=== PATIENT | female | born 1970 | race Caucasian/White ===

== ENCOUNTER 2018-02-14 06:56 | Day surgery (SDC) | payer BC, SELFPAY ==
[2017-11-05 15:09] VITALS: BMI 27.0
[2018-02-07 10:32] VITALS: BP 114/72; PULSE 82; RESP 18; TEMP 36.9; O2SAT 95; BMI 28.1
[2018-02-07 11:46] LABS: Hemoglobin 13.8 g/dl (12.0-15.0); Mean Corp Hgb Conc 32.9 g/gl (32-36); Mean Corpuscular Hgb 30.9 pg (27.0-32.0); Mean Corpuscular Volume 94.2 fL (81-99); Mean Platelet Vol. 11.3 fl (6.2-12.0); Platelet Count 174 K/mm3 (150-450); RBC Distribution Width CV 12.4 % (11.6-14.6); RBC Distribution Width SD 42.7 fl (35.1-43.9); Red Blood Count 4.46 M/mm3 (4.2-5.4); White Blood Count 4.1 K/mm3 (4.4-11.0)
[2018-02-07 11:47] LABS: Scan Indicated on CBC? Y/N NO
[2018-02-07 11:52] LABS: Prothrombin Time (Protime)PT. 13.6 SECONDS (11.7-14.9)
[2018-02-07 11:53] LABS: Partial Thromboplast Time 39.4 Seconds (24.1-36.2)
[2018-02-07 12:21] LABS: AST(SGOT) 20 U/L (15-37); Alanine Aminotransfer ALT/SGPT 23 U/L (13-56); Albumin, Serum 3.5 g/dL (3.2-5.0); Alkaline Phosphatase 44 U/L (45-117); Globulin 3.2 g/dL (2.2-4.2); Protein, Total 6.7 g/dL (6.4-8.2); Thyroid Stim Hormone (TSH) 0.94 uIU/mL (0.358-3.74)
[2018-02-14] VITALS (13 sets, daily range): BP systolic 106–150; BP diastolic 64–91; PULSE 59–99; RESP 12–18; TEMP 36.1–37.7; O2SAT 95–100; BMI 28.1
--- NOTE | 2018-02-14 06:38 | PCM.HP.STD ---
Problem List (1) Abnormal uterine bleeding Status: Acute Comment: plan [facility] BS History of Present Illness Date of Admission: 02/14/18 IRREGULAR BLEEDING: Details: SILVINO POZO is a 47 year old who presents for persistent AUB. she has had heavy menses and they are irregular- long lasting. she has a history of a normal biopsy of the endometrium. she has discussed ablation and mirena iud and doesn't want either of those. she has some fibroids also. no c sections. Female Reproductive History Last Menstral Period: 10/28/17 Cycle Length: 21-35 Bleeding Duration: 8 associated symptoms: dysmenorrhea Questions: Metorrhagia: No, Sexually active: Yes, Dyspareunia: Yes, PCB: No Menopausal Symptoms: No hot flashes, No night sweats, No weight change, No mood changes, No difficulty concentrating, No sleep problems, No change in libido Pregancy History 3 Elective abortions Hx Para 2 Spontaneous abortions Hx # Term Pregnancies Ectopic pregnancies Hx # Pregnancies Multiple births # of living children Past Pregnancies Del. Date Name GA/Weeks Outcome Route Bth Weight Gen Labor Lgth Anesthesia Del [facility] Provider FOB Unknown 1994 Pierre live - full term Unknown 1999 Gerry live - full term Past Medical History Medical History: Medical History (Last Updated 11/05/17 @ 15:15 by Pavithra Valdivia) History of back pain Z87.39 History of thyroid cancer Z85.850 Thyroid disorder E07.9 Allergies amoxicillin Allergy (Mild, Verified 02/07/18 10:14) Other naproxen Allergy (Mild, Verified 02/07/18 10:14) Other penicillin G Allergy (Mild, Verified 02/07/18 10:14) Other sulfamethoxazole [From Bactrim] Allergy (Mild, Verified 02/07/18 10:14) Unknown trimethoprim [From Bactrim] Allergy (Mild, Verified 02/07/18 10:14) Unknown donnat Allergy (Mild, Uncoded 02/07/18 10:14) Other Home Medications: Ambulatory Orders Medication Instructions Recorded baclofen 10 mg tablet 10 mg PO TID 11/05/17 biotin 10,000 mcg capsule 10,000 mcg PO DAILY 11/05/17 cholecalciferol (vitamin D3) 5,000 5,000 unit PO DAILY 09/10/18 unit capsule cyclobenzaprine 10 mg tablet 10 mg PO TID 11/05/17 docusate sodium 50 mg capsule 50 mg PO DAILY 11/05/17 lactobacillus combination no.8 3 3,000 mmu cells PO DAILY 11/05/17 billion cell capsule levothyroxine 175 mcg tablet 175 mcg PO DAILY 11/05/17 multivitamin,qs-judp-emshnyxb 1 tab PO DAILY 11/05/17 tablet tramadol 50 mg tablet 50 mg PO Q6H 11/05/17 tramadol ER 300 mg tablet,extended 300 mg PO DAILY 11/05/17 release 24 hr Surgical History: Surgical History (Last Updated 11/05/17 @ 15:15 by Pavithra Valdivia) H/O dilation and curettage Z98.890 History of back surgery Z98.890 History of bunionectomy Z98.890 History of shoulder surgery Z98.890 History of thyroidectomy Z98.890 History of tonsillectomy Z90.89 Smoking Status: Current every day smoker Review of Systems Constitutional: Denies: Fever, Malaise Eyes: Denies: Blurred vision, Vision Change HEENT: Denies: Head Aches, Visual Changes Cardiovascular: Denies: Chest Pain, Palpitations Respiratory: Denies: Cough, Shortness of Breath, Wheezing Gastrointestinal: Denies: Abdominal Pain, Diarrhea, Nausea, Vomiting Genitourinary: Denies: Dysuria, Hematuria Musculoskeletal: Denies: Joint Pain, Muscle pain Skin: Denies: Lesions, Rash Neurological: Denies: Blurred vision, Focal weakness, Headaches Psychiatric: Denies: Anxiety, Depression Endocrine: Denies: Heat/ Cold Intolerance Hematologic/ Lymphatic: Denies: Easy Bruising, Easy Bleeding VTE Information - Inpt Only VTE Present on Admission: No - Physical Exam General: Alert, Oriented x3 HEENT: EOMI Neck: Trachea Midline, Thyroid Normal Size and Texture Lungs: Clear to auscultation, Normal air movement Cardiovascular: Regular rate Abdomen: Soft, Non Tender, Non-Distended Extremities: No clubbing, No cyanosis, No edema Skin: No rashes Musculoskeletal: No Tenderness to Palpation of Joints or Extremities Neurological: Neuro grossly intact Psych/Mental Status: Normal Affect Vital Signs Temp Pulse Resp BP Pulse Ox 98.5 F 82 18 114/72 95 02/07/18 10:32 12/13/18 10:32 02/07/18 10:32 02/07/18 10:32 02/07/18 10:32 Oxygen Delivery Method Room Air Weight: 169 lb 1.513 oz Body Mass Index (BMI) 28.1 Assessment/Plan All Active Problems (Last Updated 11/05/17 @ 15:15 by Pavithra Valdivia) Abnormal uterine bleeding (Acute) 47 yo with AUB declined ablation and failed medical therapies discussed surgical risks including risks of anesthesia, infection, bleeding, injury to bowel, bladder or blood vessels, and patient wishes to proceed with surgery. UPDATE- I have seen the patient and performed any clinically relevant updates to the history and physical exam. Brandi Vaca MD
[2018-02-14 07:30] LABS: Internal QC Validated? YES +Cl - CLEAR BKGD; Pregnancy, Urine Negative Negative
[2018-02-14] MEDS: Phenazopyridine 95 MG Tablet 190 MG PO (07:44)
--- NOTE | 2018-02-14 08:45 | HYST_PTH ---
PATIENT: SILVINO POZO LOC: [facility] [place] U#:[id number] AGE/SX: 47/F ROOM: RE02/14/[address]: Dr. Brandi Vaca MD : 1970 BED: DIS: 02/15/2018 SPEC #: [id number] RECD: 02/14/18 11:38 STATUS: SULAIMAN CHARY #: [id number] EDU: 02/14/18 08:[address]: Brandi Vaca DEPT: SURGICAL PATHOLOGY RECD BY: Dereje Horn ENTERED: 02/14/18 12:57 SP TYPE: HYSTERECT OTHR DR: Dr. Patricio Kaminski DO Tissues: Uterus, NOS Procedures: Surgery Specimen Level V HEADER OPERATION: Vaginal hysterectomy, bilateral salpingectomy PRE-OP DIAGNOSIS: Abnormal uterine bleeding TISSUE SUBMITTED: Uterus, cervix, bilateral fallopian tubes MICROSCOPIC DIAGNOSIS Uterus, cervix, bilateral fallopian tubes, vaginal hysterectomy and bilateral salpingectomy: Cervix - chronic inflammation and squamous metaplasia. Endometrium - secretory endometrium. Endometrial polyp - benign endometrial polyp with secretory endometrium. Myometrium - intramural leiomyomas. - Focal adenomyosis. Bilateral fallopian tubes - no pathologic diagnosis. Detached cyst - consistent corpus luteum cyst. SJ:art 02/15/18 MICROSCOPIC DESCRIPTION Slides are reviewed. GROSS DESCRIPTION Received in fixative is one container labeled with the patient's name and designated uterus. The specimen consists of a uterus with attached cervix measuring 11 x 6 x 5.5 cm and weighing 152 gm. The ectocervix is unremarkable. The cervical os is oval in contour. The endocervical canal measures 3.3 cm in length and is grossly unremarkable. The triangular endometrial cavity measures 4.5 x 3.6 cm. The velvety, light mckay endometrium measures up to 0.2 cm. The endometrial surface contains a flat reddish-mckay endometrial polyp measuring 1.2 cm in greatest dimension. The myometrium beneath the polyp is not indurated. The myometrium measures 2.4 cm in average thickness and contains multiple rubbery nodules ranging in size from 0.5 to 2 cm in greatest dimension. The nodules on cut surface reveal a whorled appearance without areas of cyst formation, necrosis or hemorrhage. Present free in the container are two grossly unremarkable fallopian tubes with average lengths of 4 cm and average diameters of 0.5 cm. Also present free in the container is what appears to be a collapsed light mckay cyst measuring 1 cm in greatest dimension. Timber Spotter sections are submitted in 11 cassettes as follows: 1 - anterior cervix, 2 - posterior cervix, 3 - endometrial polyp, 4 & 5 - anterior myometrial wall, 6 & 7 - posterior myometrial wall, 8 - myometrial nodules, 9 - one fallopian tube, 10 - the other fallopian tube, 11 - cystic structure free in container. / AM:art 02/14/18 TC:1 CPT: 75460
[2018-02-14] MEDS: Vasopressin 20 UNITS/ML Vial (09:59)
--- NOTE | 2018-02-14 10:25 | OP.PCM_ITS ---
Problem List (1) Abnormal uterine bleeding Status: Acute Comment: plan [facility] BS Report of Operation Date of Procedure: 02/14/18 Pre-Operative Diagnosis: sterilization Post-Operative Diagnosis: same Surgery/Procedure Performed:: tv bs Description of Surgical Findings:: normal uterus tubes left cystic ovary grinder and honer operator automatic: Molly Medeiros Type of Anesthesia:: General Specimen's removed: uterus tubes Drains: peguero Estimated Blood Loss (mL): 150 Fluids Replaced: crystalloid Description of Procedure: Patient was taken to the operating room and was placed under general anesthesia was prepped and draped in normal sterile fashion in the dorsal lithotomy position. Preoperative antibiotics and SCDs and Peguero catheter was placed inside the bladder. Weighted speculum was placed in the vagina and the anterior and posterior lip of the cervix was grasped with 2 Terrie clamps and circumferentially injected with dilute vasopressin. A circumferential incision was made with a scalpel and the posterior cul-de-sac was entered into sharply and a longneck speculum was placed. The anterior cul-de-sac was also dissected down and entered into sharply and the uterosacral ligaments were clamped cut and suture ligated bilaterally followed by the cardinal ligaments which were Clamped cut and suture ligated bilaterally with 0 Monocryl. The uterus serially descended and progressive bites were taken bilaterally up to the level of the utero-ovarian ligament bilaterally which was clamped transected and double ligated with 0 Monocryl suture and 0 Vicryl free tie. Bilateral fallopian tubes and ovaries were well visualized and noted be within normal limits and the bilateral fallopian tubes were transected across the base with a Maggie clamp and removed and sutured with 0 Vicryl suture. Excellent hemostasis was noted. Posterior peritoneum was reapproximated with 2-0 Vicryl and a modified Villarreal stitch was placed through the posterior vaginal cuff and bilateral uterosacral ligaments across the posterior cul-de-sac skimming along to provide apical support to the vagina. The vagina was closed with [id number] 0 Vicryl pop offs including the posterior and anterior peritoneum in the reapproximation. Excellent hemostasis was noted. All instruments removed from the vagina clear urine was noted at the end of the procedure and patient was awoken and taken recovery in stable condition. Grafts/Implants Used: none - Complications none - Admit VTE Documentation VTE Present on Admission: No VTE Mechan Device Prophylaxis: SCD's
--- NOTE | 2018-02-14 10:25 | DCINST_ITS ---
Discharge Diet: No Restrictions Discharge Activity: Return to Normal Activity, May Not Drive, May Shower May resume sexual activity in: 6-8 weeks Call your doctor if your incision/area has: Continuous Slow Oozing, Sudden Increased Bleeding, Increased Pain/ Swelling, Increased Redness, Foul Smelling Discharge Call your doctor if you observe: Fever of 101 or Higher, Inability to urinate, Inability to have a bowel movement, Using more than one pad per hour Allergies/Adverse Reactions: Allergies naproxen Allergy (Mild, Verified 02/07/18 10:14) Other penicillin G Allergy (Mild, Verified 02/14/18 07:38) Unknown sulfamethoxazole [From Bactrim] Allergy (Mild, Verified 02/14/18 07:38) Rash trimethoprim [From Bactrim] Allergy (Mild, Verified 02/14/18 07:38) Rash amoxicillin Adverse Reaction (Mild, Verified 02/14/18 07:38) Nausea/Vom/Diarrhea atropine [From ] Adverse Reaction (Verified 02/14/18 07:38) Nausea/Vom/Diarrhea hyoscyamine [From ] Adverse Reaction (Verified 02/14/18 07:38) Nausea/Vom/Diarrhea phenobarbital [From ] Adverse Reaction (Verified 02/14/18 07:38) Nausea/Vom/Diarrhea scopolamine [From ] Adverse Reaction (Verified 02/14/18 07:38) Nausea/Vom/Diarrhea Medications to take at Discharge baclofen 10 mg tablet 10 mg PO TID 11/05/17 biotin 10,000 mcg capsule 10,000 mcg PO DAILY 11/05/17 cholecalciferol (vitamin D3) 5,000 unit capsule 5,000 unit PO DAILY 11/05/17 cyclobenzaprine 10 mg tablet 10 mg PO TID 11/05/17 docusate sodium 50 mg capsule 50 mg PO DAILY 11/05/17 lactobacillus combination no.8 3 billion cell capsule 3,000 mmu cells PO DAILY 11/05/17 levothyroxine 175 mcg tablet 175 mcg PO DAILY 11/05/17 multivitamin,eq-gwdh-usivxwcy tablet 1 tab PO DAILY 11/05/17 tramadol 50 mg tablet 50 mg PO Q6H 11/05/17 tramadol ER 300 mg tablet,extended release 24 hr 300 mg PO DAILY 11/05/17 Oxycodone HCl/Acetaminophen [Percocet 5-325] 1 - 2 tablet PO Q4H PRN PRN 7 Days #28 tablet 02/14/18 The following prescriptions were given: Oxycodone HCl/Acetaminophen [Percocet 5-325] 1 - 2 tablet PO Q4H PRN PRN 7 Days #28 tablet PRN Reason: Moderate-Severe pain Orders to be completed after discharge: Type & Screen Time Frame: 02/14/18, Location: None Selected Partial Thromboplast Time Time Frame: 02/07/18, Location: Laboratory CBC W/Diff, Automated Time Frame: 02/07/18, Location: Laboratory Liver Profile Time Frame: 02/07/18, Location: Laboratory Prothrombin Time w/INR Time Frame: 02/07/18, Location: Laboratory Thyroid Stim Hormone (TSH) Time Frame: 02/07/18, Location: Laboratory Primary Care Physician: Patricio Kaminski DO [Primary Care Provider] - Test Results: Test results from this visit will be discussed in further detail at your follow- up appointment, if applicable. Please Follow Up With: Brandi Vaca MD - [phone]
[2018-02-14] MEDS: HYDROmorphone 1 MG/ML Syringe IV ×3 (12:33→20:20)
[2018-02-14] MEDS: Lactated Ringers 1,000 ML 125 ML IV (13:52)
[2018-02-14] MEDS: Acetaminophen 500 MG Tablet 1000 MG PO (13:55)
[2018-02-14] MEDS: oxyCODONE 5 MG Tablet PO ×2 (13:55→18:26)
[2018-02-14] MEDS: Enoxaparin 40 MG/0.4 ML Syringe SC (15:42)
[2018-02-14] MEDS: Ondansetron 4 MG/2 ML Vial IV (18:28)
[2018-02-14] MEDS: traMADol 50 MG Tablet 100 MG PO (22:32)
[2018-02-15] MEDS: HYDROmorphone 1 MG/ML Syringe IV (03:21)
[2018-02-15] MEDS: 0.9% NaCl Peripheral Flush Adult/Peds IV (03:21)
[2018-02-15 03:36] VITALS: BP 102/48; PULSE 91; RESP 16; TEMP 36.9; O2SAT 94
[2018-02-15] MEDS: oxyCODONE 5 MG Tablet PO ×2 (04:28→08:37)
[2018-02-15] MEDS: Ondansetron 4 MG/2 ML Vial IV (04:30)
[2018-02-15 06:01] LABS: Hematocrit 35.7 % (37-47); Mean Corp Hgb Conc 33.6 g/gl (32-36); Mean Corpuscular Volume 95.2 fL (81-99); Mean Platelet Vol. 11.6 fl (6.2-12.0); Platelet Count 175 K/mm3 (150-450); RBC Distribution Width CV 12.4 % (11.6-14.6); RBC Distribution Width SD 41.9 fl (35.1-43.9); Red Blood Count 3.75 M/mm3 (4.2-5.4); White Blood Count 7.7 K/mm3 (4.4-11.0)
[2018-02-15 06:09] LABS: Scan Indicated on CBC? Y/N NO
[2018-02-15] MEDS: Levothyroxine 175 MCG Tablet PO (06:11)
[2018-02-15] MEDS: traMADol 50 MG Tablet 100 MG PO (06:11)
[2018-02-15 06:16] LABS: Creatinine, Serum 0.59 mg/dL (0.55-1.02); EST Glomerular Filtration Rate 117 mL/min (>60); Est Glom Filt Rate - Afr Amer 142 mL/min (>60); Estimated Creatinine Clearance 108.35 ml/min
[2018-02-15 07:52] VITALS: O2SAT 97
[2018-02-15 07:55] VITALS: BP 120/74; PULSE 74; RESP 16; TEMP 36.9; O2SAT 98
[2018-02-15] MEDS: Baclofen 10 MG Tablet PO (08:06)
[2018-02-15] MEDS: Acetaminophen 500 MG Tablet 1000 MG PO (08:37)
[2018-02-15] MEDS: Enoxaparin 40 MG/0.4 ML Syringe SC (10:08)
[2018-02-15] MEDS: Docusate Sodium 100 MG/10 ML UDC 50 MG PO (10:08)
== END 2018-02-15 12:05 | disposition home or self-care (01) ==
LOC: SDC 06:56 → AC 06:57 → ACINP 11:21 → MS3 12:04
PROVIDERS: Anesthesiology; Family Provider Student in an Organized Health Care Education/Training Program; PCP Student in an Organized Health Care Education/Training Program; Referring Provider Obstetrics & Gynecology; Visit Provider Obstetrics & Gynecology
PROC: (CPT 58260; principal; 2018-02-14 08:25)
DX: N84.0 Polyp of corpus uteri (principal); N92.1 Excessive and frequent menstruation with irregular cycle; Z85.850 Personal history of malignant neoplasm of thyroid; E07.9 Disorder of thyroid, unspecified; Z79.899 Other long term (current) drug therapy; F17.200 Nicotine dependence, unspecified, uncomplicated; N83.12 Corpus luteum cyst of left ovary; N80.0 Endometriosis of uterus; N87.9 Dysplasia of cervix uteri, unspecified
CPT/HCPCS: 58262; 36415; 80076; 81025; 82565; 84443; 85027; 85610; 85730; 86850; 86900; 88307; J7120; A4216; J2405

== ENCOUNTER → 2019-02-14 09:37 | Outpatient (CLI) | payer BC, SELFPAY ==
[2019-02-14 09:37] VITALS: BMI 26.2
[2019-02-14 10:36] LABS: T4 Free Direct 0.91 ng/dL (0.76-1.46); Thyroid Stim Hormone (TSH) 9.83 uIU/mL (0.358-3.74)
[2019-02-24 13:00] LABS: Anti-Thyroglobulin AB 8.7 IU/mL (0.0-0.9); Thyroglobulin RIA < 2.0 ng/mL (.)
== END ==
PROVIDERS: Family Provider Student in an Organized Health Care Education/Training Program; PCP Student in an Organized Health Care Education/Training Program; Visit Provider Internal Medicine Endocrinology, Diabetes & Metabolism
DX: C73 Malignant neoplasm of thyroid gland (principal)
CPT/HCPCS: 36415; 84432; 84439; 84443; 86800

== ENCOUNTER → 2019-04-07 11:27 | Outpatient (CLI) | payer BC, SELFPAY ==
[2019-02-14 09:37] VITALS: BMI 26.2
[2019-04-07 12:17] LABS: T4 Free Direct 1.01 ng/dL (0.76-1.46); Thyroid Stim Hormone (TSH) 1.77 uIU/mL (0.358-3.74)
== END ==
PROVIDERS: PCP Student in an Organized Health Care Education/Training Program; Referring Provider Internal Medicine Endocrinology, Diabetes & Metabolism; Visit Provider Internal Medicine Endocrinology, Diabetes & Metabolism
DX: E89.0 Postprocedural hypothyroidism (principal)
CPT/HCPCS: 36415; 84439; 84443

== ENCOUNTER → 2019-08-11 11:13 | Outpatient (CLI) | payer BC, SELFPAY ==
[2019-02-14 09:37] VITALS: BMI 26.2
[2019-08-11 11:55] LABS: T4 Free Direct 1.34 ng/dL (0.76-1.46); Thyroid Stim Hormone (TSH) 0.11 uIU/mL (0.358-3.74)
== END ==
PROVIDERS: PCP Student in an Organized Health Care Education/Training Program; Referring Provider Internal Medicine Endocrinology, Diabetes & Metabolism; Visit Provider Internal Medicine Endocrinology, Diabetes & Metabolism
DX: E03.9 Hypothyroidism, unspecified (principal)
CPT/HCPCS: 36415; 84439; 84443

== ENCOUNTER → 2019-11-12 10:58 | Outpatient (CLI) | payer BC, SELFPAY ==
[2019-02-14 09:37] VITALS: BMI 26.2
[2019-11-12 12:32] LABS: Free T3 2.5 pg/mL (2.18-3.98); T4 Free Direct 1.26 ng/dL (0.76-1.46)
[2019-11-12 12:35] LABS: Thyroid Stim Hormone (TSH) 0.02 uIU/mL (0.358-3.74)
== END ==
PROVIDERS: PCP Student in an Organized Health Care Education/Training Program; Referring Provider Internal Medicine Endocrinology, Diabetes & Metabolism; Visit Provider Internal Medicine Endocrinology, Diabetes & Metabolism
DX: E03.9 Hypothyroidism, unspecified (principal)
CPT/HCPCS: 36415; 84439; 84443; 84481

== ENCOUNTER → 2019-12-09 10:40 | Outpatient (CLI) | payer BC, SELFPAY ==
[2019-02-14 09:37] VITALS: BMI 26.2
[2019-12-09 11:22] LABS: Thyroid Stim Hormone (TSH) 0.01 uIU/mL (0.358-3.74)
== END ==
PROVIDERS: PCP Student in an Organized Health Care Education/Training Program; Referring Provider Internal Medicine Endocrinology, Diabetes & Metabolism; Visit Provider Internal Medicine Endocrinology, Diabetes & Metabolism
CPT/HCPCS: 36415; 84443

== ENCOUNTER → 2020-02-03 14:50 | Outpatient (CLI) | payer BC, SELFPAY ==
[2019-02-14 09:37] VITALS: BMI 26.2
[2020-02-03 16:19] LABS: T4 Free Direct 1.41 ng/dL (0.76-1.46); Thyroid Stim Hormone (TSH) < 0.01 uIU/mL (0.358-3.74)
== END ==
PROVIDERS: PCP Student in an Organized Health Care Education/Training Program; Referring Provider Internal Medicine Endocrinology, Diabetes & Metabolism; Visit Provider Internal Medicine Endocrinology, Diabetes & Metabolism
DX: E89.0 Postprocedural hypothyroidism (principal)
CPT/HCPCS: 36415; 84439; 84443

== ENCOUNTER → 2020-02-17 13:01 | Outpatient (CLI) | payer BC, SELFPAY ==
[2019-02-14 09:37] VITALS: BMI 26.2
--- NOTE | 2020-02-17 13:04 | CT_ITS ---
STUDY: CT MAXILLOFACIAL SINUSES REASON FOR EXAM: Female, 49 years old. SINUSITIS-BILAT, HX-THYROID CA WITH REMOVAL AND RAD TX RADIATION DOSAGE (If Supplied By Facility): CTDIvol = ( 33.06 ) mGy, DLP = ( 788.40 ) mGycm TECHNIQUE: The patient was scanned in a multi detector CT scanner. High resolution axial imaging was performed without the administration of intravenous contrast material. Sagittal and coronal images were reconstructed. Individualized dose optimization techniques were used for this CT. COMPARISON: None. FINDINGS: FRONTAL SINUSES: Normal aeration, without mucosal inflammatory disease. ETHMOIDAL SINUSES: Normal aeration, without mucosal inflammatory disease. MAXILLARY SINUSES: Normal aeration, without mucosal inflammatory disease. SPHENOIDAL SINUSES: Normal aeration, without mucosal inflammatory disease. There is patency of the bilateral maxillary infundibuli with normal uncinate processes, ethmoid bullae, and hiatus semilunaris. Normal bilateral middle turbinates. Normal bilateral inferior turbinates. There is a right sided nasal septal deviation with a right sided nasal septal spur. There is patency of the bilateral nasal airways. CT/Sinus/Facial Bone IMPRESSION: The sinuses are clear. Nasal septal deviation. Electronically Signed: Jony Rubalcava MD at 13:12 EST Tel , Service support ,
== END ==
LOC: CT 13:03
PROVIDERS: PCP Student in an Organized Health Care Education/Training Program; Referring Provider Otolaryngology Otolaryngology/Facial Plastic Surgery; Visit Provider Otolaryngology Otolaryngology/Facial Plastic Surgery
DX: J32.9 Chronic sinusitis, unspecified (principal)
CPT/HCPCS: 70486

== ENCOUNTER → 2020-03-10 10:07 | Outpatient (CLI) | payer BC, SELFPAY ==
[2019-02-14 09:37] VITALS: BMI 26.2
--- NOTE | 2020-03-10 10:14 | NM_ITS ---
CLINICAL: 49-year-old female with reported history of postprandial abdominal pain and nausea. RADIONUCLIDE HEPATOBILIARY SCINTIGRAPHY COMPARISON: None available FINDINGS: Following the intravenous administration of 5.6 mCi of 99m Tc Mebrofenin, hepatobiliary images reveal: 1. Relatively prompt and homogeneous radiopharmaceutical concentration is noted by a normal sized liver. No parenchymal defects are identified. 2. Gallbladder activity is identified at 10 minutes post radiopharmaceutical administration. 3. Small intestinal tract is observed at 30 minutes following tracer injection. 4. Washout of the radiopharmaceutical by the hepatic parenchyma appears qualitatively normal. Cholecystokinin (0.02 ug/kg) was administered intravenously over a 30-minute period. The post CCK gallbladder ejection fraction calculated at 20 minutes following Cholecystokinin administration was noted to be 63.0 % (normal greater than 35%). During 30 minutes of post CCK imaging, there is no scintigraphic evidence of reflux of the radiotracer into the common hepatic duct or refilling of the gallbladder. NM/Hepatobilliary Img w/Pharm Int IMPRESSION: 1. NORMAL 99m Tc Mebrofenin hepatobiliary imaging examination with Cholecystokinin. A. A gallbladder ejection fraction calculated to be greater than 35% following the administration of Cholecystokinin makes the probability of functional hepatobiliary disease (gallbladder and/or sphincter of Oddi dyskinesia) and/or organic hepatobiliary disease (chronic acalculous cholecystitis and/or cystic duct syndrome) to be low. (Curtis Pinedo et al, Journal of Nuclear Medicine 32:1695, 1991). Electronically Signed: Dereje Patterson DO at 22:42 EST Tel , Service support ,
== END ==
LOC: NM 10:08
PROVIDERS: PCP Student in an Organized Health Care Education/Training Program; Referring Provider Student in an Organized Health Care Education/Training Program; Visit Provider Student in an Organized Health Care Education/Training Program
DX: R10.11 Right upper quadrant pain (principal)
CPT/HCPCS: 78227; A9537; J2805

== ENCOUNTER → 2020-03-22 10:43 | Outpatient (CLI) | payer BC, SELFPAY ==
[2020-03-22 11:52] LABS: T4 Free Direct 1.34 ng/dL (0.76-1.46); Thyroid Stim Hormone (TSH) 0.01 uIU/mL (0.358-3.74)
[2020-03-22 19:12] LABS: Xtra Tube EP Lab EXTRA TUBE
[2020-03-29 10:43] LABS: Anti-Thyroglobulin AB 6.4 IU/mL (0.0-0.9); Thyroglobulin RIA < 2.0 ng/mL (.)
== END ==
PROVIDERS: PCP Student in an Organized Health Care Education/Training Program; Referring Provider Internal Medicine Endocrinology, Diabetes & Metabolism; Visit Provider Internal Medicine Endocrinology, Diabetes & Metabolism
DX: C73 Malignant neoplasm of thyroid gland (principal); E89.0 Postprocedural hypothyroidism
CPT/HCPCS: 84432; 84439; 84443; 86800

== ENCOUNTER 2020-03-23 09:14 | Day surgery (SDC) | payer BC, SELFPAY ==
[2019-02-14 09:37] VITALS: BMI 26.2
--- NOTE | 2020-03-23 | IMM_PTH ---
PATIENT: SILVINO POZO LOC: [place] U#:[id number] AGE/SX: 49/F ROOM: RE03/23/[address]: Dr. Pierre Esparza MD : 1970 BED: DIS: 03/23/2020 SPEC #: [id number] RECD: 03/24/20 08:59 STATUS: SULAIMAN REVikas #: [id number] EDU: 03/23/20 00:[address]: Pierre Esparza DEPT: IMMUNOHISTOCHEMISTRY RECD BY: Mayi Johnosn ENTERED: 03/24/20 08:59 SP TYPE: IMMUNO OTHR DR: Dr. Patricio Kaminski DO Tissues: Stomach, NOS Procedures: H Pylori (initial) PHYSICIAN & INSTITUTION [place] [address] SPECIMEN INFORMATION: Tissue Source: Antrum biopsy Clinical Info: Epigastric pain; sludge in gallbladder Specimen Number: [id number] CPT code: 34300 METHODOLOGY: Deparaffinized sections of prefer/formalin-fixed tissue or PAP/DQ stained slides are incubated with monoclonal/polyclonal antibodies/oligonucleotide probes. Localization is made via biotin free immunoperoxidase method. Appropriate controls are performed and reacted as expected. Results on target cell population are indicated in the following table: RESULTS: ANTIBODY / CLONE RESULT H Pylori (polyclonal) negative These tests were developed and their performance characteristics determined by [facility]. They may not have been cleared or approved by the U.S. Food and Drug Administration. The FDA has determined that such clearance or approval is not necessary. INTERPRETATION: Antrum, biopsy: Negative for Helicobacter pylori organisms. AM:art 03/24/2020
--- NOTE | 2020-03-23 05:20 | HP_ITS ---
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 Is patient in pain?: No Allergies naproxen Allergy (Mild, Verified 03/11/20 13:12) Other penicillin G Allergy (Mild, Verified 03/11/20 13:12) Unknown sulfamethoxazole [From Bactrim] Allergy (Mild, Verified 03/11/20 13:12) Rash trimethoprim [From Bactrim] Allergy (Mild, Verified 03/11/20 13:12) Rash amoxicillin Adverse Reaction (Mild, Verified 03/11/20 13:12) Nausea/Vom/Diarrhea atropine [From ] Adverse Reaction (Verified 03/11/20 13:12) Nausea/Vom/Diarrhea hyoscyamine [From ] Adverse Reaction (Verified 03/11/20 13:12) Nausea/Vom/Diarrhea phenobarbital [From ] Adverse Reaction (Verified 03/11/20 13:12) Nausea/Vom/Diarrhea scopolamine [From ] Adverse Reaction (Verified 03/11/20 13:12) Nausea/Vom/Diarrhea Medications cholecalciferol (vitamin D3) 125 mcg (5,000 unit) capsule 5,000 unit PO DAILY 11/05/17 [History Confirmed 03/11/20] lactobacillus combination no.8 3 billion cell capsule 3,000 mmu cells PO DAILY 11/05/17 [History Confirmed 03/11/20] multivitamin,fo-jgdc-oomfvnzn 1 tab PO DAILY 11/05/17 [History Confirmed 03/11/20] glucosamine-chondroitin 750 mg-600 mg tablet 2 tab PO tab 01/30/19 [History Confirmed 03/11/20] levothyroxine 175 mcg tablet 175 mcg PO .COMPLEX #102 tab 02/23/20 [Rx Confirmed 03/11/20] biotin 10,000 mcg capsule 5,000 mcg PO DAILY cap 03/11/20 [History Confirmed 03/11/20] famotidine 20 mg tablet 20 mg PO DAILY 03/11/20 [History Confirmed 03/11/20] omeprazole 40 mg capsule,delayed release 40 mg PO DAILY #60 cap 03/11/20 [Rx Confirmed 03/11/20] PFS Medical History Abnormal uterine bleeding (Acute) Abdominal pain (Acute) Anxiety (Acute) Arthritis (Acute) Diarrhea (Acute) Difficulty swallowing (Acute) GERD (gastroesophageal reflux disease) (Acute) Goiter (Acute) History of UTI (Acute) History of back pain (Acute) History of back problems (Acute) History of breast lump (Acute) History of thyroid cancer (Acute) Nausea (Acute) Thyroid disorder (Acute) Vitamin deficiency (Acute) history of bone fractures (Acute) Headache (Chronic) Surgical History (Updated 03/11/20 @ 13:10 by Herminia Goldman) H/O dilation and curettage (Acute) History of back surgery (Acute) History of bunionectomy (Acute) History of shoulder surgery (Acute) History of thyroidectomy (Acute) History of tonsillectomy (Acute) History of total vaginal hysterectomy (TVH) (Acute) history right kidney surgery (Acute) Family History (Updated 03/11/20 @ 13:10 by Herminia Goldman) Grandfather Colon cancer Social History (Updated 03/11/20 @ 13:[address] Pierre Esparza MD) Smoking Status: Current every day smoker alcohol intake: current details: social substance use type: does not use caffeine: Yes what type of physical activity do you participate in: walking frequency: 3-4 times per week seatbelt use: always do you feel safe at home: Yes additional social history: Nubia LING Patient works at [employer] in [place] HPI HPI HPI: SILVINO POZO, is a 49 F who presents to the office today for HPI HPI Surgical H&P: Yes HPI: SILVINO POZO, is a 49 F who presents to the office today for Epigastric pain. Patient reports that she has been having nausea after eating as well as epigastric pain for the last month and a half. She reports no fevers or chills. She had an ultrasound done in outside hospital as well as a HIDA test. Patient also reports she has had some burning in her chest and felt some relief after being started on Pepcid. ROS General General: Yes fatigue; no weight change, appetite, colon cancer, breast cancer or weakness HEENT HEENT: Yes difficulty swallowing; no eye injury, eye surgery, swollen glands or hoarseness Endo Endocrine: Yes thyroid disease and thyroid cancer; no diabetes mellitus, Hair loss, heat intolerance or cold intolerance Skin Skin: No rash or changing moles Breast Breast: No left breast lump, right breast lump, nipple discharge, breast pain, abnormal mammogram, abnormal US or breast enlargement Musc Musculoskeletal: Yes back problems and arthritis; no rheumatoid arthritis, gout or joint pain Cardio Cardiovascular: No murmur, pacemaker, heart disease, atrial fibrillation, high blood pressure, heart attack, heart stent, palpitations, shortness of breat with exertion or chest pain Psych Psychiatric: Yes anxiety; no depression or hearing voices Resp Respiratory: Yes shortness of breath, No sleep apnea, No cough, No COPD, No asthma, No emphysema, No wheezing Gastro Gastrointestinal: Yes abdominal pain, Yes nausea or vomiting, Yes diarrhea, No constipation, Yes blood in stool, Yes acid reflux, No hemorrhoids, No ulcers, No gallbladder problem, No black,tarry stools Dago Hematologic: No blood thinners, No blood disorders, No bleeding, No anemia, No blood clots Neuro Neurologic: No system reviewed and no additional complaints, except as docu, No as per HPI, No abnormal walking, No abnormal hearing, No abnormal movements, No abnormal speech, No behavioral changes, No burning sensations, No confusion, No seizure-like activity, No unsteadiness, No dizziness, No localized weakness, No frequent falls, No headache(s), No lack of coordination, No loss of vision, No memory loss, No numbness, No other visual disturbances, No radiating pain, No restless legs, No sensory deficit, No fainting, No tingling, No tremor(s), No weakness, No other Exam Const General: cooperative Orientation: alert, oriented x3 Chest Breast Palpation: No nipple discharge Resp Effort & Inspection: normal respiratory effort Auscultation: clear to auscultation bilaterally Cardio Rate: regular rate Rhythm: regular rhythm Heart Sounds: no murmurs GI Inspection: non-distended Palpation: soft, tender in the RUQ Assessment & Plan Problems 1. Epigastric pain R10.13 2. Sludge in gallbladder K82.8 Plan The patient has epigastric pain especially after eating. The patient had an ultrasound of the outside hospital showed sludge in the gallbladder. She had a HIDA scan which showed normal ejection fraction and filling. The patient has tenderness in the right upper quadrant but did have some relief with Pepcid. I will start the patient on a proton pump inhibitor and stop the Pepcid. I will also perform an EGD to rule out hiatal hernia as a cause of her pain and peptic ulcer disease. If the EGD is normal and she does not experience any relief with the PPI I will recommend laparoscopic cholecystectomy. Pierre Esparza MD Pager: [facility] [address] [place] [address], [address] [place] [address] Office: Orders Orders: EGD Today R10.13 Medications New: omeprazole 40 mg PO DAILY 60 caps 0RF Coding Level of Care Code Off vis,est,level 3 Diagnoses Epigastric pain R10.13 Sludge in gallbladder K82.8 I have re-examined the patient. There are no clinical changes since date of exam.
[2020-03-23] MEDS: Lactated Ringers 1,000 ML 100 ML IV (09:40)
[2020-03-23 09:41] VITALS: BP 117/71; PULSE 62; RESP 16; TEMP 36.9; O2SAT 98; BMI 27.7
--- NOTE | 2020-03-23 10:09 | OP.EGD_ITS ---
Patient Name: Zuleika Driver Procedure Date: 03/23/2020 9:58 AM Date of : 1970 Age: 49 Procedure: Upper GI endoscopy Indications: Epigastric abdominal pain Providers: Pierre Esparza MD Referring MD: Patricio Kaminski Medicines: Monitored Anesthesia Care Patient Profile: This is a 49 year old female. Refer to note in patient chart for documentation of history and physical. Complications: No immediate complications. Procedure: Pre-Anesthesia Assessment: - Prior to the procedure, a History and Physical was performed, and patient medications and allergies were reviewed. The patient's tolerance of previous anesthesia was also reviewed. The risks and benefits of the procedure and the sedation options and risks were discussed with the patient. All questions were answered, and informed consent was obtained. Prior Anticoagulants: The patient has taken no previous anticoagulant or antiplatelet agents. After reviewing the risks and benefits, the patient was deemed in satisfactory condition to undergo the procedure. After obtaining informed consent, the endoscope was passed under direct vision. Throughout the procedure, the patient's blood pressure, pulse, and oxygen saturations were monitored continuously. The gastroscope was introduced through the mouth, and advanced to the second part of duodenum. The upper GI endoscopy was accomplished without difficulty. The patient tolerated the procedure well. Scope In: 10:03:57 AM Scope Out: 10:06:02 AM Total Procedure Duration Time 0 hours 2 minutes 5 seconds Findings: Mild inflammation was found in the gastric antrum. Biopsies were taken with a cold forceps for histology. The esophagus was normal. The examined duodenum was normal. Impression: - Bile gastritis. Biopsied. - Normal esophagus. - Normal examined duodenum. Recommendation: - Discharge patient to home. - Resume previous diet. - Continue present medications. - Use sucralfate tablets 1 gram PO QID for 2 weeks. Procedure Code(s): --- Professional --- 93705, Esophagogastroduodenoscopy, flexible, transoral; with biopsy, single or multiple Diagnosis Code(s): --- Professional --- K29.60, Other gastritis without bleeding R10.13, Epigastric pain CPT copyright 2017 [employer]. All rights reserved. The codes documented in this report are preliminary and upon maintainer operator review may be revised to meet current compliance requirements. Pierre Esparza MD 03/23/2020 10:09:05 AM This report has been signed electronically. Number of Addenda: 0 Note Initiated On: 03/23/2020 9:58 AM
--- NOTE | 2020-03-23 10:09 | OP.CCLET_ITS ---
03/23/2020 Patricio Kaminski [address] [place] [address] Re : Upper GI endoscopy procedure for Zuleika Driver Dear Dr. Kaminski This procedure was performed on Monday, March 23, 2020. My impressions and recommendations are as follows: Impressions : - Bile gastritis. Biopsied. - Normal esophagus. - Normal examined duodenum. Recommendations : - Discharge patient to home. - Resume previous diet. - Continue present medications. - Use sucralfate tablets 1 gram PO QID for 2 weeks. My findings are described in the full procedure note, which is enclosed. If I can be of further assistance, please feel free to contact me at Doctor phone number(s): , Work: . Sincerely, Pierre Esparza MD 03/23/2020 10:09:05 AM This report has been signed electronically.
[2020-03-23 10:10] VITALS: BP 117/71; BP 89/48; PULSE 72; RESP 16; TEMP 36.5; O2SAT 97
[2020-03-23 10:15] VITALS: BP 117/71; BP 94/57; PULSE 74; RESP 16; O2SAT 97
--- NOTE | 2020-03-23 10:15 | EGD_PTH ---
PATIENT: SILVINO POZO LOC: EN U#:[id number] AGE/SX: 49/F ROOM: RE03/23/[address]: Dr. Pierre Esparza MD : 1970 BED: DIS: 03/23/2020 SPEC #: [id number] RECD: 03/23/20 11:01 STATUS: SULAIMAN CHARY #: [id number] EDU: 03/23/20 10:[address]: Pierre Esparza DEPT: SURGICAL PATHOLOGY RECD BY: Rubina Wilson ENTERED: 03/23/20 13:07 SP TYPE: EGD BIOPSY OTHR DR: Dr. Patricio Kaminski, DO Tissues: Gastric mucous membrane Procedures: Surgery Specimen Level IV HEADER OPERATION: [place] [place] PRE-OP DIAGNOSIS: Epigastric pain, sludge in gallbladder TISSUE SUBMITTED: Biopsy of antrum for H. pylori and path MICROSCOPIC DIAGNOSIS Gastric antrum, biopsy: Chronic gastritis. AM:art 03/24/2020 COMMENT The results of immunohistochemistry for Helicobacter pylori will be reported separately ([id number]). MICROSCOPIC DESCRIPTION Slides are reviewed. GROSS DESCRIPTION Received in fixative is one container labeled with the patient's name and designated biopsy of antrum. The specimen consists of two irregular fragments of light mckay soft tissue that in aggregate measure 0.5 x 0.4 x 0.1 cm. The specimen is totally submitted in one cassette. / SJ:art 03/23/20 TC:3 CPT: 04072
[2020-03-23 10:20] VITALS: BP 106/68; BP 117/71; PULSE 69; RESP 16; O2SAT 97
[2020-03-23 10:25] VITALS: BP 106/71; BP 117/71; PULSE 70; RESP 16; TEMP 36.2; O2SAT 98
[2020-03-23 10:45] VITALS: BP 117/71
== END 2020-03-23 11:06 | disposition home or self-care (01) ==
LOC: EN 09:15 → AC 09:16
PROVIDERS: PCP Student in an Organized Health Care Education/Training Program; Referring Provider Student in an Organized Health Care Education/Training Program; Visit Provider Surgery
PROC: 0DJ08ZZ Inspection of Upper Intestinal Tract, Via Natural or Artificial Opening Endoscopic (ICD-10-PCS; CPT 43235; principal; 2020-03-23 10:10)
DX: K29.50 Unspecified chronic gastritis without bleeding (principal); K29.60 Other gastritis without bleeding; Z20.828 Contact with and (suspected) exposure to other viral communicable diseases; F41.9 Anxiety disorder, unspecified; M19.90 Unspecified osteoarthritis, unspecified site; K21.9 Gastro-esophageal reflux disease without esophagitis; K58.9 Irritable bowel syndrome, unspecified; Z78.0 Asymptomatic menopausal state; Z87.440 Personal history of urinary (tract) infections; Z85.850 Personal history of malignant neoplasm of thyroid; Z79.899 Other long term (current) drug therapy; F17.200 Nicotine dependence, unspecified, uncomplicated
CPT/HCPCS: 43239; 87426; 88305; 88342; C9803; J7120

== ENCOUNTER 2020-04-09 09:31 | Day surgery (SDC) | payer BC, SELFPAY ==
[2020-04-09] VITALS (13 sets, daily range): BP systolic 106–154; BP diastolic 58–94; PULSE 56–78; RESP 14–18; TEMP 36.1–36.6; O2SAT 95–100; BMI 28.1
--- NOTE | 2020-04-09 07:00 | HP_ITS ---
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 Is patient in pain?: No Allergies naproxen Allergy (Mild, Verified 03/11/20 13:12) Other penicillin G Allergy (Mild, Verified 03/11/20 13:12) Unknown sulfamethoxazole [From Bactrim] Allergy (Mild, Verified 03/11/20 13:12) Rash trimethoprim [From Bactrim] Allergy (Mild, Verified 03/11/20 13:12) Rash amoxicillin Adverse Reaction (Mild, Verified 03/11/20 13:12) Nausea/Vom/Diarrhea atropine [From ] Adverse Reaction (Verified 03/11/20 13:12) Nausea/Vom/Diarrhea hyoscyamine [From ] Adverse Reaction (Verified 03/11/20 13:12) Nausea/Vom/Diarrhea phenobarbital [From ] Adverse Reaction (Verified 03/11/20 13:12) Nausea/Vom/Diarrhea scopolamine [From ] Adverse Reaction (Verified 03/11/20 13:12) Nausea/Vom/Diarrhea Medications cholecalciferol (vitamin D3) 125 mcg (5,000 unit) capsule 5,000 unit PO DAILY 11/05/17 [History Confirmed 03/11/20] lactobacillus combination no.8 3 billion cell capsule 3,000 mmu cells PO DAILY 11/05/17 [History Confirmed 03/11/20] multivitamin,cq-nrrq-ghwobnix 1 tab PO DAILY 11/05/17 [History Confirmed 03/11/20] glucosamine-chondroitin 750 mg-600 mg tablet 2 tab PO tab 01/30/19 [History Confirmed 03/11/20] levothyroxine 175 mcg tablet 175 mcg PO .COMPLEX #102 tab 02/23/20 [Rx Confirmed 03/11/20] biotin 10,000 mcg capsule 5,000 mcg PO DAILY cap 03/11/20 [History Confirmed 03/11/20] famotidine 20 mg tablet 20 mg PO DAILY 03/11/20 [History Confirmed 03/11/20] omeprazole 40 mg capsule,delayed release 40 mg PO DAILY #60 cap 03/11/20 [Rx Confirmed 03/11/20] PFS Medical History Abnormal uterine bleeding (Acute) Abdominal pain (Acute) Anxiety (Acute) Arthritis (Acute) Diarrhea (Acute) Difficulty swallowing (Acute) GERD (gastroesophageal reflux disease) (Acute) Goiter (Acute) History of UTI (Acute) History of back pain (Acute) History of back problems (Acute) History of breast lump (Acute) History of thyroid cancer (Acute) Nausea (Acute) Thyroid disorder (Acute) Vitamin deficiency (Acute) history of bone fractures (Acute) Headache (Chronic) Surgical History (Updated 03/11/20 @ 13:10 by Herminia Goldman) H/O dilation and curettage (Acute) History of back surgery (Acute) History of bunionectomy (Acute) History of shoulder surgery (Acute) History of thyroidectomy (Acute) History of tonsillectomy (Acute) History of total vaginal hysterectomy (TVH) (Acute) history right kidney surgery (Acute) Family History (Updated 03/11/20 @ 13:10 by Herminia Goldman) Grandfather Colon cancer Social History (Updated 03/11/20 @ 13:[address] Pierre Esparza MD) Smoking Status: Current every day smoker alcohol intake: current details: social substance use type: does not use caffeine: Yes what type of physical activity do you participate in: walking frequency: 3-4 times per week seatbelt use: always do you feel safe at home: Yes additional social history: Nubia LING Patient works at [employer] in [place] HPI HPI HPI: SILVINO POZO, is a 49 F who presents to the office today for HPI HPI Surgical H&P: Yes HPI: SILVINO POZO, is a 49 F who presents to the office today for Epigastric pain. Patient reports that she has been having nausea after eating as well as epigastric pain for the last month and a half. She reports no fevers or chills. She had an ultrasound done in outside hospital as well as a HIDA test. Patient also reports she has had some burning in her chest and felt some relief after being started on Pepcid. ROS General General: Yes fatigue; no weight change, appetite, colon cancer, breast cancer or weakness HEENT HEENT: Yes difficulty swallowing; no eye injury, eye surgery, swollen glands or hoarseness Endo Endocrine: Yes thyroid disease and thyroid cancer; no diabetes mellitus, Hair loss, heat intolerance or cold intolerance Skin Skin: No rash or changing moles Breast Breast: No left breast lump, right breast lump, nipple discharge, breast pain, abnormal mammogram, abnormal US or breast enlargement Musc Musculoskeletal: Yes back problems and arthritis; no rheumatoid arthritis, gout or joint pain Cardio Cardiovascular: No murmur, pacemaker, heart disease, atrial fibrillation, high blood pressure, heart attack, heart stent, palpitations, shortness of breat with exertion or chest pain Psych Psychiatric: Yes anxiety; no depression or hearing voices Resp Respiratory: Yes shortness of breath, No sleep apnea, No cough, No COPD, No asthma, No emphysema, No wheezing Gastro Gastrointestinal: Yes abdominal pain, Yes nausea or vomiting, Yes diarrhea, No constipation, Yes blood in stool, Yes acid reflux, No hemorrhoids, No ulcers, No gallbladder problem, No black,tarry stools Dago Hematologic: No blood thinners, No blood disorders, No bleeding, No anemia, No blood clots Neuro Neurologic: No system reviewed and no additional complaints, except as docu, No as per HPI, No abnormal walking, No abnormal hearing, No abnormal movements, No abnormal speech, No behavioral changes, No burning sensations, No confusion, No seizure-like activity, No unsteadiness, No dizziness, No localized weakness, No frequent falls, No headache(s), No lack of coordination, No loss of vision, No memory loss, No numbness, No other visual disturbances, No radiating pain, No restless legs, No sensory deficit, No fainting, No tingling, No tremor(s), No weakness, No other Exam Const General: cooperative Orientation: alert, oriented x3 Chest Breast Palpation: No nipple discharge Resp Effort & Inspection: normal respiratory effort Auscultation: clear to auscultation bilaterally Cardio Rate: regular rate Rhythm: regular rhythm Heart Sounds: no murmurs GI Inspection: non-distended Palpation: soft, tender in the RUQ Assessment & Plan Problems 1. Epigastric pain R10.13 2. Sludge in gallbladder K82.8 Plan The patient has epigastric pain especially after eating. The patient had an ultrasound of the outside hospital showed sludge in the gallbladder. She had a HIDA scan which showed normal ejection fraction and filling. The patient has tenderness in the right upper quadrant but did have some relief with Pepcid. I will start the patient on a proton pump inhibitor and stop the Pepcid. I will also perform an EGD to rule out hiatal hernia as a cause of her pain and peptic ulcer disease. If the EGD is normal and she does not experience any relief with the PPI I will recommend laparoscopic cholecystectomy. Pierre Esparza MD Pager: [phone] [address] [place] [address], [address] [place] [address] Office: Orders Orders: EGD Today R10.13 Medications New: omeprazole 40 mg PO DAILY 60 caps 0RF Coding Level of Care Code Off vis,est,level 3 Diagnoses Epigastric pain R10.13 Sludge in gallbladder K82.8 I have re-examined the patient. There are no clinical changes since date of exam.
[2020-04-09] MEDS: Lactated Ringers 1,000 ML 100 ML IV ×2 (10:26→12:22)
--- NOTE | 2020-04-09 11:00 | GALL_PTH ---
PATIENT: SILVINO POZO [place] [facility] [place][id number] AGE/SX: 49/F ROOM: RE04/09/[address]: Dr. Pierre Esparza MD : 1970 BED: DIS: 04/09/2020 SPEC #: [id number] RECD: 04/09/20 12:56 STATUS: SULAIMAN REVikas #: [id number] EDU: 04/09/20 11:[address]: Pierre Esparza DEPT: SURGICAL PATHOLOGY RECD BY: Rubina Wilson ENTERED: 04/12/20 07:46 SP TYPE: DHAVAL LR DR: Dr. Patricio Kaminski, DO Tissues: Gallbladder, NOS Procedures: Surgery Specimen Level III HEADER OPERATION: Laparoscopic cholecystectomy with IOC PRE-OP DIAGNOSIS: Epigastric pain, sludge in gallbladder TISSUE SUBMITTED: Gallbladder MICROSCOPIC DIAGNOSIS Gallbladder, cholecystectomy: Mild chronic cholecystitis. AM:art 04/13/2020 MICROSCOPIC DESCRIPTION Slides are reviewed. GROSS DESCRIPTION Received is one container labeled with the patient's name and designated gallbladder. The specimen consists of a gallbladder measuring 8 x 3 x 3 cm. The external surface is smooth and glistening. Focally, it is granular, hemorrhagic and contains cautery artifact. The lumen of the gallbladder contains greenish mucoid bile and no calculi. The mucosa is bile-stained and without any mass lesions. The gallbladder wall averages 0.1 cm in thickness and is free of mass lesions. Pit Tanner sections of the gallbladder and the cystic duct at margin of resection are submitted in one cassette. / AM:art 04/12/20 TC:3 CPT: 05342
--- NOTE | 2020-04-09 11:09 | RAD_ITS ---
STUDY: INTRAOPERATIVE CHOLANGIOGRAM. REASON FOR EXAM: Female, 49 years old. LAP KIRAN FLUOROSCOPY TIME (if supplied): ( 8.6 seconds ) minutes/seconds. A cine loop of 47 images was submitted. TECHNIQUE: An intraoperative cholangiogram was performed by the surgeon. Imaging was submitted. COMPARISON: None. FINDINGS: The intra and extrahepatic biliary ducts are unremarkable. No intraluminal filling defect is seen. There is free flow of contrast into the duodenum. RAD/Cholangiogram/ O R,Initial IMPRESSION: Unremarkable intraoperative cholangiogram. Electronically Signed: Everette You MD at 15:20 EST , Service support ,
[2020-04-09] MEDS: Bupiv/Epi 0.25% 30 ML Vial (11:34)
--- NOTE | 2020-04-09 11:54 | OP.PCM_ITS ---
Problem List (1) Sludge in gallbladder Status: Acute Report of Operation Date of Procedure: 04/09/20 Pre-Operative Diagnosis: Sludge of the gallbladder with biliary colic Post-Operative Diagnosis: Same Surgery/Procedure Performed:: Laparoscopic cholecystectomy with cholangiogram Specimen's removed: Gallbladder and contents Description of Procedure: After obtaining informed consent patient was brought back to the operating room. General anesthesia was induced. The abdomen was prepped and draped in usual sterile fashion. A small midline incision was made superior to the umbilicus and deepened to the level of fascia. The fascia was elevated and incised. Next the peritoneum was elevated and incised in the same fashion. Finger sweep was performed and the Wolf trocar was placed into the abdomen. The balloon was inflated. The abdomen was inflated to 15 mmHg. Next a camera was introduced into the abdomen and the abdomen was inspected. Next under direct visualization three 5-mm ports were placed one subxiphoid and 2 subcostal. Next the gallbladder was elevated and retracted toward the right shoulder. The peritoneum was stripped from the gallbladder. The infundibulum was located and retracted laterally. Next the triangle of Calot was dissected and the cystic duct and cystic artery were identified. Cholangiograms were performed. The Jessica ar clamp was used to clamp across the infundibulum and the catheter needle was inserted into the gallbladder. Under fluoroscopy contrast was instilled into the gallbladder and the common duct, cystic duct as well as proximal hepatic ducts were identified. There was good filling of the duodenum. There were no filling defects noted in the common bile duct. The clamp was removed as well as the needle and the infundibulum was grasped once more. Three hemolock clips were placed across the cystic duct. The cystic duct was then divided leaving 2 clips on the stump. The cystic artery was clipped and divided in the same fashion. The hook cautery was then used to take the gallbladder off of the gallbladder bed. Hemostasis was obtained. Gallbladder fossa was irrigated and no active bleeding or bile leakage was noted. Next the camera was introduced in the subxiphoid port. An Endopouch bag was placed through the umbilical port and the gallbladder was placed into it. The gallbladder was then removed through the umbilical incision. The camera was then reinserted through the umbilical port. The gallbladder fossa was inspected once more and noted to be hemostatic with no leaking bile. The abdomen was suctioned dry. The 5 mm ports were removed under direct visualization. The umbilical port was then removed and the air was removed from the abdomen. Next using an 0 Vicryl suture the umbilical fascia was closed in a [id number] fashion. The umbilical port site was irrigated local anesthetic was administered to all the incisions. All the incisions were closed with interrupted subcuticular 4-0 Monocryl sutures followed by Steri-Strips and dressings. The patient was awoken and taken to PACU in stable condition. - Admit VTE Documentation VTE Mechan Device Prophylaxis: SCD's
--- NOTE | 2020-04-09 11:57 | PCM.DC.GB ---
Discharge Diet: Light diet - advance as tolerated Discharge Activity: Return to Normal Activity, May Not Drive - for 2-3 days or while taking narcotic pain medicataions., - - Do not drive, work heavy equipment or sign legal documents for 24 hours. May shower in (days): 1 - with the bandage in place. Lifting Restrictions: 20 lbs for 2 weeks Additional Activity Instructions:: Pain medication may cause nausea. You should typically eat light foods as you take your pain medications. Pain medication may also cause constipation. If this is a problem for you, please discuss with your doctor. Call your doctor if your incision/area has: Continuous Slow Oozing, Sudden Increased Bleeding, Increased Pain/ Swelling, Increased Redness, Foul Smelling Discharge, Fever of 101 or Higher Call your doctor if you observe: Fever of 101 or Higher Suture Line Care: Avoid Pulling/Pushing, Avoid Pinching/Bending Additional Dressing/Incision Instructions:: Leave operative bandaids on for 2 days. When you remove dressing, leave Steri-Strips on until your follow-up appointment, or until the Steri-Strips fall off on their own. Allergies/Adverse Reactions: Allergies naproxen Allergy (Mild, Verified 04/09/20 09:49) Other penicillin G Allergy (Mild, Verified 04/09/20 09:49) Unknown sulfamethoxazole [From Bactrim] Allergy (Mild, Verified 04/09/20 09:49) Rash trimethoprim [From Bactrim] Allergy (Mild, Verified 04/09/20 09:49) Rash amoxicillin Adverse Reaction (Mild, Verified 04/09/20 09:49) Nausea/Vom/Diarrhea atropine [From ] Adverse Reaction (Verified 04/09/20 09:49) Nausea/Vom/Diarrhea hyoscyamine [From ] Adverse Reaction (Verified 04/09/20 09:49) Nausea/Vom/Diarrhea phenobarbital [From ] Adverse Reaction (Verified 04/09/20 09:49) Nausea/Vom/Diarrhea scopolamine [From ] Adverse Reaction (Verified 04/09/20 09:49) Nausea/Vom/Diarrhea Medications to take at Discharge cholecalciferol (vitamin D3) 125 mcg (5,000 unit) capsule 5,000 unit PO DAILY 11/05/17 lactobacillus combination no.8 3 billion cell capsule 3,000 mmu cells PO DAILY 11/05/17 multivitamin,ma-hbde-loghvxss 1 tab PO DAILY 11/05/17 glucosamine-chondroitin 750 mg-600 mg tablet 2 tab PO DAILY tab 01/30/19 levothyroxine 175 mcg tablet 175 mcg PO .COMPLEX #102 tab 02/23/20 biotin 10,000 mcg capsule 5,000 mcg PO DAILY cap 03/11/20 Acetaminophen [Tylenol Extra Strength] 500 - 1,000 mg PO Q6H PRN PRN 03/16/20 Sucralfate [Carafate] 1 gm PO 4X/DAY #60 udc 03/23/20 omeprazole 40 mg capsule,delayed release See Rx Instructions .ROUTE .COMPLEX #30 cap 04/05/20 Oxycodone HCl/Acetaminophen [Percocet 5-325 mg Tablet] 1 - 2 tab PO Q6H PRN PRN 5 Days #30 tablet 04/09/20 The following prescriptions were given: Oxycodone HCl/Acetaminophen [Percocet 5-325 mg Tablet] 1 - 2 tab PO Q6H PRN PRN 5 Days #30 tablet PRN Reason: Pain Score 4-10/10 Transmission Status: Sent to [facility] Primary Care Physician: Patricio Kaminski DO [Primary Care Provider] - Test Results: Test results from this visit will be discussed in further detail at your follow-up appointment, if applicable. Please Follow Up With: Pierre Esparza MD When: Please call to schedule 2 week follow up appointment. [phone]
[2020-04-09] MEDS: Acetaminophen 325 MG Tablet PO (14:45)
[2020-04-09] MEDS: oxyCODONE 5 MG Tablet PO (14:45)
== END 2020-04-09 15:40 | disposition home or self-care (01) ==
LOC: SDC 09:32 → AC 09:32
PROVIDERS: PCP Student in an Organized Health Care Education/Training Program; Referring Provider Surgery; Visit Provider Surgery
PROC: (CPT 47610; principal; 2020-04-09 10:40)
DX: K81.1 Chronic cholecystitis (principal); K82.8 Other specified diseases of gallbladder; F41.9 Anxiety disorder, unspecified; K58.9 Irritable bowel syndrome, unspecified; K21.9 Gastro-esophageal reflux disease without esophagitis; M19.90 Unspecified osteoarthritis, unspecified site; Z78.0 Asymptomatic menopausal state; Z87.440 Personal history of urinary (tract) infections; Z85.850 Personal history of malignant neoplasm of thyroid; Z79.899 Other long term (current) drug therapy; F17.200 Nicotine dependence, unspecified, uncomplicated
CPT/HCPCS: 47563; 74300; 76000; 87426; 88304; C9803; J7120; J2405

== ENCOUNTER → 2020-04-26 09:17 | Outpatient (CLI) | payer BC, SELFPAY ==
[2020-04-09 09:50] VITALS: BMI 28.1
--- NOTE | 2020-04-26 09:18 | VDLE_ITS ---
Reason For Study: Left Calf Pain RIGHT LEFT CFV is compressible, spontaneous, phasic, GSV is normal. competent and demonstrates normal CFV is compressible, spontaneous, phasic, augmentation. competent, and demonstrates normal Procedure augmentation. Exam performed in department. FV is compressible, spontaneous, phasic, A preliminary report was called and/or faxed competent and demonstrates normal to Dr. Esparza. augmentation. POP V is compressible, spontaneous, phasic, competent and demonstrates normal augmentation. T/P Trunk is compressible. PTV is compressible. LT PerV is compressible. Interpretation Summary There is no evidence of left lower extremity deep vein thrombosis. Left great saphenous vein appears patent and compressible segmentally. Patent and compressible right common femoral vein Ordering Physician: Pierre Esparza Referring Physician: Patricio Kaminski Performed By: Elvie Stafford, KAIA, RVT
== END ==
PROVIDERS: PCP Student in an Organized Health Care Education/Training Program; Referring Provider Surgery; Visit Provider Surgery
DX: M79.662 Pain in left lower leg (principal)
CPT/HCPCS: 93971

== ENCOUNTER → 2020-05-07 10:41 | Outpatient (CLI) | payer BC, SELFPAY ==
[2020-04-09 09:50] VITALS: BMI 28.1
[2020-05-07 12:09] LABS: T4 Free Direct 1.39 ng/dL (0.76-1.46); Thyroid Stim Hormone (TSH) 0.12 uIU/mL (0.358-3.74)
== END ==
PROVIDERS: PCP Student in an Organized Health Care Education/Training Program; Referring Provider Internal Medicine Endocrinology, Diabetes & Metabolism; Visit Provider Internal Medicine Endocrinology, Diabetes & Metabolism
DX: E89.0 Postprocedural hypothyroidism (principal)
CPT/HCPCS: 36415; 84439; 84443

== ENCOUNTER → 2020-06-29 09:23 | Outpatient (CLI) | payer BC, SELFPAY ==
[2020-06-29 08:59] VITALS: BMI 27.4
[2020-06-29 10:38] LABS: NATERA MAILED SPECIMEN
== END ==
PROVIDERS: PCP Student in an Organized Health Care Education/Training Program; Referring Provider Nurse Practitioner Women's Health; Visit Provider Nurse Practitioner Women's Health
DX: C73 Malignant neoplasm of thyroid gland (principal); Z80.41 Family history of malignant neoplasm of ovary
CPT/HCPCS: 36415

== ENCOUNTER → 2020-08-27 11:45 | Outpatient (CLI) | payer BC, SELFPAY ==
[2020-06-29 08:59] VITALS: BMI 27.4
--- NOTE | 2020-08-27 12:46 | RAD_ITS ---
STUDY: X-RAY - PELVIS REASON FOR EXAM: Female, 50 years old. RHEUMATOID ARTHRITIS TECHNIQUE: One view of the pelvis was obtained. COMPARISON: None. FINDINGS: There is a non-specific bowel gas pattern. There are multiple calcified phleboliths. Normal bilateral iliac wings, sacroiliac joints and visualized sacrum. Normal visualized bilateral superior and inferior pubic rami. There are degenerative changes of the pubic symphysis with articular narrowing and sclerosis. Normal ischial tuberosities. Normal visualized right femoral head. Normal right acetabulum. Normal right hip joint. Normal visualized left femoral head. Normal left acetabulum. Normal left hip joint. RAD/Pelvis 1 or 2 Views IMPRESSION: Degenerative changes of the symphysis pubis. Electronically Signed: Everette You MD at 13:06 EDT , Service support ,
[2020-08-27 13:38] LABS: Absolute Lymphocyte Count 1.53 X10^3/uL (0.83-4.51); Absolute Neutrophil Count 4.1 X10^3/uL (2.0-7.7); Basophil# 0.05 X10^3/uL; Basophil% 0.8 % (0-1); Eosinophil# 0.16 X10^3/uL; Eosinophils% 2.6 % (0-5); Hematocrit 43.6 % (37-47); Hemoglobin 14.3 g/dL (12.0-15.0); Lymphocyte # 1.53 X10^3/ul (0.83-4.51); Lymphocyte % 24.8 % (19-41); Mean Corp Hgb Conc 32.8 g/dL (32-36); Mean Corpuscular Hgb 32.3 pg (27.0-32.0); Mean Corpuscular Volume 98.4 fL (81-99); Mean Platelet Vol. 11.5 fl (6.2-12.0); Monocyte# 0.36 X10^3/uL; Monocyte% 5.8 % (0-10); NRBC Flagged by Analyzer 0 % (0-5); Neutrophil # 4.05 X10^3/uL (2.7-7.7); Neutrophil % 65.7 % (47-70); Platelet Count 245 K/mm3 (150-450); RBC Distribution Width CV 12.9 % (11.6-14.6); RBC Distribution Width SD 46.9 fl (35.1-43.9); Red Blood Count 4.43 M/mm3 (4.2-5.4); White Blood Count 6.2 K/mm3 (4.4-11.0)
[2020-08-27 14:07] LABS: ALB/GLOB Ratio 1.1 RATIO (0.9-2.4); AST(SGOT) 14 U/L (15-37); Alanine Aminotransfer ALT/SGPT 19 U/L (13-56); Albumin, Serum 3.6 g/dL (3.2-5.0); Alkaline Phosphatase 50 U/L (45-117); Anion Gap 4 (5-15); BUN 9 mg/dL (7-18); Calcium,Total 8.6 mg/dL (8.5-10.1); Chloride 105 mmol/L (98-107); Creatinine, Serum 0.64 mg/dL (0.55-1.02); EST Glomerular Filtration Rate 105 mL/min (>60); Est Glom Filt Rate - Afr Amer 127 mL/min (>60); Globulin 3.2 g/dL (2.2-4.2); Glucose 88 mg/dL (74-106); Potassium 3.9 mmol/L (3.5-5.1); Protein, Total 6.8 g/dL (6.4-8.2); Sodium Level 139 mmol/L (136-145)
[2020-08-27 15:04] LABS: Hepatitis B Surface Antibody Non-Reactive; Hepatitis B Surface Antigen Non-Reactive (Nonreactive); Hepatitis C Antibody Non-Reactive (Nonreactive)
== END ==
PROVIDERS: PCP Student in an Organized Health Care Education/Training Program; Referring Provider Internal Medicine Rheumatology; Visit Provider Internal Medicine Rheumatology
DX: M05.79 Rheumatoid arthritis with rheumatoid factor of multiple sites without organ or systems involvement (principal); M79.7 Fibromyalgia; M47.897 Other spondylosis, lumbosacral region; Q66.70 Congenital pes cavus, unspecified foot; E89.0 Postprocedural hypothyroidism; Z85.850 Personal history of malignant neoplasm of thyroid
CPT/HCPCS: 36415; 72170; 80053; 81374; 85025; 86200; 86431; 86706; 86803; 87340

== ENCOUNTER → 2020-12-06 10:09 | Outpatient (CLI) | payer BC, SELFPAY ==
[2020-12-06 10:45] LABS: Absolute Lymphocyte Count 1.49 X10^3/uL (0.83-4.51); Absolute Neutrophil Count 2.9 X10^3/uL (2.0-7.7); Basophil# 0.08 X10^3/uL; Basophil% 1.6 % (0-1); Eosinophil# 0.21 X10^3/uL; Eosinophils% 4.2 % (0-5); Hematocrit 43.5 % (37-47); Hemoglobin 14.9 g/dL (12.0-15.0); Lymphocyte # 1.49 X10^3/ul (0.83-4.51); Lymphocyte % 30.1 % (19-41); Mean Corp Hgb Conc 34.3 g/dL (32-36); Mean Corpuscular Hgb 33.1 pg (27.0-32.0); Mean Corpuscular Volume 96.7 fL (81-99); Mean Platelet Vol. 10.9 fl (6.2-12.0); Monocyte# 0.26 X10^3/uL; Monocyte% 5.3 % (0-10); NRBC Flagged by Analyzer 0 % (0-5); Neutrophil # 2.89 X10^3/uL (2.7-7.7); Neutrophil % 58.4 % (47-70); Platelet Count 209 K/mm3 (150-450); RBC Distribution Width SD 45.5 fl (35.1-43.9)
[2020-12-06 11:26] LABS: ALB/GLOB Ratio 1.1 RATIO (0.9-2.4); AST(SGOT) 15 U/L (15-37); Alanine Aminotransfer ALT/SGPT 20 U/L (13-56); Albumin, Serum 3.7 g/dL (3.2-5.0); Alkaline Phosphatase 44 U/L (45-117); Anion Gap 4 (5-15); BUN 10 mg/dL (7-18); BUN/Creat Ratio 12.8 RATIO (10-20); Calcium,Total 8.9 mg/dL (8.5-10.1); Chloride 107 mmol/L (98-107); Creatinine, Serum 0.78 mg/dL (0.55-1.02); EST Glomerular Filtration Rate 84 mL/min (>60); Est Glom Filt Rate - Afr Amer 101 mL/min (>60); Globulin 3.5 g/dL (2.2-4.2); Glucose 87 mg/dL (74-106); Potassium 4.5 mmol/L (3.5-5.1); Protein, Total 7.2 g/dL (6.4-8.2); Sodium Level 140 mmol/L (136-145)
== END ==
PROVIDERS: PCP Student in an Organized Health Care Education/Training Program; Referring Provider Internal Medicine Rheumatology; Visit Provider Internal Medicine Rheumatology
DX: M05.79 Rheumatoid arthritis with rheumatoid factor of multiple sites without organ or systems involvement (principal); Z79.899 Other long term (current) drug therapy; M79.7 Fibromyalgia; M47.897 Other spondylosis, lumbosacral region; Q66.70 Congenital pes cavus, unspecified foot; E89.0 Postprocedural hypothyroidism; Z85.850 Personal history of malignant neoplasm of thyroid
CPT/HCPCS: 36415; 80053; 85025

== ENCOUNTER → 2021-11-01 | Outpatient (CLI) | payer BC, SELFPAY ==
[2021-11-01 17:40] LABS: Amylase 63 U/L (25-115)
[2021-11-05 16:50] LABS: Gastrin, Serum 31 pg/mL (0-115)
== END | disposition home or self-care (01) ==
LOC: LAB 15:37
PROVIDERS: PCP Student in an Organized Health Care Education/Training Program; Referring Provider Nurse Practitioner Adult Health; Visit Provider Nurse Practitioner Adult Health
DX: R10.13 Epigastric pain (principal); R19.8 Other specified symptoms and signs involving the digestive system and abdomen
CPT/HCPCS: 36415; 82150; 82941

== ENCOUNTER → 2021-12-08 | Outpatient (CLI) | payer BC, SELFPAY ==
[2021-12-13 16:13] LABS: Fats, Neutral Normal (.); Fats, Total Normal (.)
[2021-12-14 09:06] LABS: Pancreatic Elastase, Fecal 203 (>200)
== END | disposition home or self-care (01) ==
LOC: LABSPEC 10:07
PROVIDERS: PCP Student in an Organized Health Care Education/Training Program; Referring Provider Nurse Practitioner Adult Health; Visit Provider Nurse Practitioner Adult Health
DX: R19.8 Other specified symptoms and signs involving the digestive system and abdomen (principal); R10.13 Epigastric pain
CPT/HCPCS: 82653; 82705

== ENCOUNTER 2022-01-11 07:26 | Day surgery (SDC) | payer BC, SELFPAY ==
--- NOTE | 2022-01-11 | IMM_PTH ---
PATIENT: SILVINO POZO LOC: EN U#:[id number] AGE/SX: 51/F ROOM: RE01/11/[address]: Dr. Aric Donato DO : 1970 BED: DIS: 01/11/2022 SPEC #: [id number] RECD: 01/11/22 15:09 STATUS: SULAIMAN REQ #: [id number] EDU: 01/11/22 00:[address]: Aric Donato DEPT: IMMUNOHISTOCHEMISTRY RECD BY: Latesha Jordan ENTERED: 01/11/22 15:10 SP TYPE: IMMUNO OTHR DR: Dr. Patricio Kaminski DO Tissues: Gastric mucous membrane Procedures: H Pylori (initial) PHYSICIAN & INSTITUTION [place] [address] SPECIMEN INFORMATION: Tissue Source: A. Gastric antrum Clinical Info: Epigastric pain Specimen Number: [id number] CPT code: 74585 METHODOLOGY: Deparaffinized sections of prefer/formalin-fixed tissue or PAP/DQ stained slides are incubated with monoclonal/polyclonal antibodies/oligonucleotide probes. Localization is made via biotin free immunoperoxidase method. Appropriate controls are performed and reacted as expected. Results on target cell population are indicated in the following table: RESULTS: ANTIBODY / CLONE RESULT H Pylori (polyclonal) negative These tests were developed and their performance characteristics determined by [facility]. They may not have been cleared or approved by the U.S. Food and Drug Administration. The FDA has determined that such clearance or approval is not necessary. The above immunohistochemical/dualISH markers are ordered and reviewed by the Pathologist. INTERPRETATION: Gastric antrum: Negative for Helicobacter pylori organisms. /BRITTANY:radha 01/12/2022
[2022-01-11 07:46] VITALS: BP 117/82; PULSE 80; RESP 16; TEMP 36.4; O2SAT 100; BMI 26.3
[2022-01-11] MEDS: Lactated Ringers 1,000 ML 15 ML IV (07:51)
--- NOTE | 2022-01-11 07:56 | HP.PCM_ITS ---
History and Physical Date of Admission: 01/11/22 SILVINO POZO, is a 51 F who presents to the office today for epigastric pain and change in bowel pattern. Referred for upper and lower endoscopy to evaluate her GI complaints which began approx 2 yrs ago. Alternates between loose stool and constipation x 2 yrs. No pattern she can dis cern. Feels like never empties, may go multiple times a day, might have to wipe many times. Benefiber some help. Recent painless rectal bleeding, small amt, happened a few times. Hx of anal fissure. Coffee and cigarette help with constipation. Smokes 1/2 ppd. No cramps or lower abd pain. She had relatively recent CT abd at [facility]. Having pain and burning in epigastrium, worse sitting or lying on side. Doesn't radiate. Has been on omeprazole 40 mg for more than 2 yrs, not sure it helps. Didn't have heartburn or acid reflux. Occas mild nausea, no vomiting, early satiety.? The pain is less noticeable when she is up and moving around. Worse with stress. Had EGD 2 yrs ago which was benign, right before cholecystectomy for sludge. The pain started before that, no relief with the cholecystectomy. No relief with sucralfate. Last colonoscopy was more than 10 yrs ago. FH grandfather colon cancer. 05/2021 labs by port drier: ANCA neg, HBV core Ab neg, HBV surf Ab neg, IgA nl, IgG nl, Igm nl 09/2021 labs by PCP: CBC unremarkable, CRP <0.3, CMP unremarkable, TSH 1.150, T3 free nl, T4 free nl, thyroglobulin Ab high ROS Const Constitutional: No fatigue, fever(s), frequent falls, headache(s) or weight change ENT ENT: No headache(s) or difficulty swallowing Cardio Cardiology: No leg pain with exertion Gastro GI: Positive for abdominal pain, bloating, change in bowel habits, constipation, diarrhea and heartburn; No difficulty swallowing, Vomiting blood/hematemesis, Blood in stool, nausea/dyspepsia or vomiting Musc Musculoskeletal: Positive for joint pain, back pain, stiffness and Arthritis; No abnormal gait, joint swelling, muscle cramps, muscle weakness, numbness, tingling, sciatica, leg pain at night or leg pain with exertion Skin Skin: No dry skin, lesions, itchy eyes or rash Neuro Neurology: No abnormal gait, dizziness, frequent falls, headache(s), numbness, tingling, tremor(s), Increased tone in limbs, paralysis or seizures Psych Psychiatric: No anxiety, No depression, No paranoia, No Behavioral Problems, No Compulsive Behavior, No hyperactivity, No inattentiveness, No obsessions/compulsions, Positive for Temper Tantrums and No suicidal ideation Endo Endocrine: No fatigue or weight change Aller/Imm Allergy/Immunologic: No itchy eyes Dago/Lymp Hematologic/Lymphatic: No easy bleeding or easy bruising Exam Const General: cooperative, comfortable and no acute distress Orientation: alert, awake and oriented x3 HENMT Head: normal to inspection Eyes General: appearance normal, both eyes and all related structures Resp Effort & Inspection: normal respiratory effort GI Inspection: normal to inspection Palpation: soft, no hepatosplenomegaly, no masses and tender in the epigastrum Quality Reporting Tobacco Screening ([facility] 138) Smoking Status: Current every day smoker Assessment and Plan Assessment and Plan (1) Epigastric pain: ?Status:?Acute ?Plan: 51 yr old female with epigastric pain, constipation with possible overflow diarrhea. PMH includes RA, thyroid cancer. DDx includes gastritis, peptic ulcer disease, duodenitis, SOD, pancreatitis, EPI. She is already taking PPI. She reports relatively recent CT abd; we will get [facility] CT image/report. Schedule EGD and colonoscopy, f/u 2 wks after to discuss results. Check gastrin level, amylase, stool for pancreatic elastase and fats. Try treating constipation with nightly miralax +/- prunes; consider switch from benefiber to metamucil. (2) Alternating constipation and diarrhea: ?Status:?Acute ?Plan: as above ? ? ? Orders: Orders Fecal Fat, Qualitative Today R10.13 - Epigastric pain, R19.8 - Other specified symptoms and signs involving the digestive system and abdomen ? Pancreatic Elastase, Fecal Today R10.13 - Epigastric pain, R19.8 - Other specified symptoms and signs involving the digestive system and abdomen ? Amylase Today R10.13 - Epigastric pain, R19.8 - Other specified symptoms and signs involving the digestive system and abdomen ? Gastrin, Serum Today R10.13 - Epigastric pain, R19.8 - Other specified symptoms and signs involving the digestive system and abdomen ? I have examined the patient and the H&P has been reviewed. There are no clinical changes since date of exam.
--- NOTE | 2022-01-11 08:30 | EGD_PTH ---
PATIENT: SILVINO POZO LOC: EN U#:[id number] AGE/SX: 51/F ROOM: RE01/11/[address]: Dr. Aric Donato DO : 1970 BED: DIS: 01/11/2022 SPEC #: [id number] RECD: 01/11/22 09:36 STATUS: SULAIMAN CHARY #: [id number] EDU: 01/11/22 08:[address]: Aric Donato DEPT: SURGICAL PATHOLOGY RECD BY: Rubina Wilson ENTERED: 01/11/22 11:52 SP TYPE: EGD BIOPSY OT DR: Dr. Patricio Kaminski DO Tissues: A - Gastric mucous membrane B - Duodenum, NOS C - Esophagus, NOS D - Ileum, NOS E - Sigmoid colon biopsy Procedures: Special Stain Group II Surgery Specimen Level IV Alcian Blue/PAS (control) HEADER OPERATION: Colonoscopy, EGD ([facility]), biopsies, polypectomy PRE-OP DIAGNOSIS: Epigastric pain, alternating constipation and diarrhea TISSUE SUBMITTED: A. Gastric antrum biopsy, B. Duodenum biopsy, C. Distal esophagus biopsy, D. Terminal ileum biopsy, E. Sigmoid polyp biopsy MICROSCOPIC DIAGNOSIS A. Gastric antrum biopsy: Mild gastritis. See microscopic description and comment. B. Duodenum biopsy: Fragments of small intestinal mucosa, no pathologic diagnosis. C. Distal esophagus biopsy: Fragments of gastroesophageal mucosa with chronic inflammation. Intestinal metaplasia (goblet cell metaplasia) not identified. See comment. D. Terminal ileum biopsy: Fragments of small intestinal mucosa, no pathologic diagnosis. E. 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 See comment. /BRITTANY 01/12/22 COMMENT A. The results of immunohistochemistry for Helicobacter pylori will be reported separately ([id number]). C. Alcian blue/PAS stain with matched control supports the above diagnosis. E. Invasive carcinoma is not seen. Correlation with clinical, endoscopic findings and appropriate follow up are necessary. MICROSCOPIC DESCRIPTION Slides are reviewed. The specimen shows fragments of gastric mucosa with chronic inflammatory cell infiltrates in the lamina propria consisting of lymphocytes and plasma cells, consistent with mild chronic gastritis. GROSS DESCRIPTION A. Received is one container labeled with the patient name and designated gastric antrum. The specimen consists of two irregular fragments of light mckay soft tissue that in aggregate measure 0.8 x 0.2 x 0.1 cm. The specimen is totally submitted in one cassette. B. Received is one container labeled with the patient name and designated duodenum. The specimen consists of multiple irregular fragments of light mckay soft tissue that in aggregate measure 1 x 0.3 x 0.1 cm. The specimen is totally submitted in one cassette. C. Received is one container labeled with the patient name and designated distal esophagus. The specimen consists of two irregular fragments of light mckay soft tissue that in aggregate measure 0.6 x 0.3 x 0.1 cm. The specimen is totally submitted in one cassette. D. Received is one container labeled with the patient name and designated terminal ileum. The specimen consists of multiple irregular fragments of light mckay soft tissue that in aggregate measure 1 x 0.3 x 0.1 cm. The specimen is totally submitted in one cassette. E. Received is one container labeled with the patient name and designated sigmoid polyp. Received are two pink-red polyps measuring 1 x 1 x 0.7 and 2 x 1 x 0.8 cm. Both polyps are bisected. Also present in the contains are multiple irregular fragments of light mckay soft tissue that in aggregate measure 1.5 x 0.5 x 0.2 cm. The specimen is totally submitted in one cassette. /SJ:cc 01/12/20 TC 0 [facility]: [id number] x5, [phone]
[2022-01-11] MEDS: 0.9% Saline Lock 10 ML Syringe IV (09:19)
--- NOTE | 2022-01-11 09:25 | OP.EGD_ITS ---
Patient Name: Zuleika Driver Procedure Date: 01/11/2022 8:20 AM Date of : 1970 Age: 51 Procedure: Upper GI endoscopy Indications: Epigastric abdominal pain, Functional Dyspepsia Providers: Aric Donato DO Medicines: Monitored Anesthesia Care Patient Profile: This is a 51 year old female. Refer to note in patient chart for documentation of history and physical. Patient has symptoms of chronic abdominal cramping, acute epigastric abdominal pain and chronic epigastric abdominal pain. Complications: No immediate complications. Procedure: Pre-Anesthesia Assessment: - Prior to the procedure, a History and Physical was performed, and patient medications and allergies were reviewed. The risks and benefits of the procedure and the sedation options and risks were discussed with the patient. All questions were answered and informed consent was obtained. Patient identification and proposed procedure were verified by the physician in the pre-procedure area. Mental Status Examination: alert and oriented. Airway Examination: normal oropharyngeal airway and neck mobility. Respiratory Examination: clear to auscultation. CV Examination: normal. Prophylactic Antibiotics: The patient does not require prophylactic antibiotics. Prior Anticoagulants: The patient has taken no previous anticoagulant or antiplatelet agents. ASA Grade Assessment: II - A patient with mild systemic disease. After reviewing the risks and benefits, the patient was deemed in satisfactory condition to undergo the procedure. The anesthesia plan was to use monitored anesthesia care (MAC). Immediately prior to administration of medications, the patient was re-assessed for adequacy to receive sedatives. The heart rate, respiratory rate, oxygen saturations, blood pressure, adequacy of pulmonary ventilation, and response to care were monitored throughout the procedure. The physical status of the patient was re-assessed after the procedure. After obtaining informed consent, the endoscope was passed under direct vision. Throughout the procedure, the patient's blood pressure, pulse, and oxygen saturations were monitored continuously. The pediatric colonoscope was introduced through the mouth, and advanced to the second part of duodenum. The upper GI endoscopy was accomplished without difficulty. The patient tolerated the procedure well. Scope In: 8:31:58 AM Scope Out: 8:36:20 AM Total Procedure Duration Time 0 hours 4 minutes 22 seconds Findings: The Z-line was irregular and was found 38 cm from the incisors. Biopsies were taken with a cold forceps for histology. Verification of patient identification for the specimen was done. Estimated blood loss was minimal. A small hiatal hernia was present. Segmental moderate inflammation characterized by congestion (edema), erosions, erythema and shallow ulcerations was found in the gastric body and in the gastric antrum. Biopsies were taken with a cold forceps for histology. Verification of patient identification for the specimen was done. Estimated blood loss was minimal. No gross lesions were noted in the second portion of the duodenum. Biopsies were taken with a cold forceps for histology. Verification of patient identification for the specimen was done. Estimated blood loss was minimal. Impression: - Z-line irregular, 38 cm from the incisors. Biopsied. - Small hiatal hernia. - Gastritis. Biopsied. - No gross lesions in the second portion of the duodenum. Biopsied. Recommendation: - Discharge patient to home. - Resume previous diet. - Use Prilosec (omeprazole) 40 mg PO BID. - Continue present medications. Procedure Code(s): --- Professional --- 70237, Esophagogastroduodenoscopy, flexible, transoral; with biopsy, single or multiple CPT copyright 2017 [employer]. All rights reserved. The codes documented in this report are preliminary and upon braille coder review may be revised to meet current compliance requirements. Aric Donato DO 01/11/2022 9:24:31 AM This report has been signed electronically. Number of Addenda: 0 Note Initiated On: 01/11/2022 8:20 AM
[2022-01-11 09:26] VITALS: BP 117/82; BP 126/78; BP 127/72; PULSE 69; PULSE 74; RESP 12; RESP 18; TEMP 36.1; O2SAT 100
--- NOTE | 2022-01-11 09:27 | OP.CCLET_ITS ---
01/11/2022 Patricio Kaminski [address] [place] [address] Re : Upper GI endoscopy procedure for Zuleika Driver Dear Dr. Kaminski This procedure was performed on Tuesday, January 11, 2022. My impressions and recommendations are as follows: Impressions : - Z-line irregular, 38 cm from the incisors. Biopsied. - Small hiatal hernia. - Gastritis. Biopsied. - No gross lesions in the second portion of the duodenum. Biopsied. Recommendations : - Discharge patient to home. - Resume previous diet. - Use Prilosec (omeprazole) 40 mg PO BID. - Continue present medications. My findings are described in the full procedure note, which is enclosed. If I can be of further assistance, please feel free to contact me at . Sincerely, Aric Donato, 01/11/2022 9:24:31 AM This report has been signed electronically.
--- NOTE | 2022-01-11 09:32 | OP.COLON_ITS ---
Patient Name: Zuleika Driver Procedure Date: 01/11/2022 8:36 AM Date of : 1970 Age: 51 Procedure: Colonoscopy Indications: Screening for colorectal malignant neoplasm Providers: Aric Donato DO Medicines: Monitored Anesthesia Care Patient Profile: This is a 51 year old female. Refer to note in patient chart for documentation of history and physical. Patient has symptoms of chronic abdominal cramping, acute epigastric abdominal pain and chronic epigastric abdominal pain. Last Colonoscopy: date unknown. Unable to locate last colonoscopy report. Complications: No immediate complications. Procedure: Pre-Anesthesia Assessment: - Prior to the procedure, a History and Physical was performed, and patient medications and allergies were reviewed. The risks and benefits of the procedure and the sedation options and risks were discussed with the patient. All questions were answered and informed consent was obtained. Patient identification and proposed procedure were verified by the physician in the pre-procedure area. Mental Status Examination: alert and oriented. Airway Examination: normal oropharyngeal airway and neck mobility. Respiratory Examination: clear to auscultation. CV Examination: normal. Prophylactic Antibiotics: The patient does not require prophylactic antibiotics. Prior Anticoagulants: The patient has taken no previous anticoagulant or antiplatelet agents. ASA Grade Assessment: II - A patient with mild systemic disease. After reviewing the risks and benefits, the patient was deemed in satisfactory condition to undergo the procedure. The anesthesia plan was to use monitored anesthesia care (MAC). Immediately prior to administration of medications, the patient was re-assessed for adequacy to receive sedatives. The heart rate, respiratory rate, oxygen saturations, blood pressure, adequacy of pulmonary ventilation, and response to care were monitored throughout the procedure. The physical status of the patient was re-assessed after the procedure. After I obtained informed consent, the scope was passed under direct vision. Throughout the procedure, the patient's blood pressure, pulse, and oxygen saturations were monitored continuously. The colonoscope was introduced through the anus and advanced to the terminal ileum. The colonoscopy was performed without difficulty. The patient tolerated the procedure well. The quality of the bowel preparation was good. Scope In: 8:38:37 AM Scope Withdrawal Time 0 hours 34 minutes 9 seconds Scope Out: 9:18:08 AM Total Procedure Duration Time 0 hours 39 minutes 31 seconds Findings: The perianal and digital rectal examinations were normal. A frond-like/villous partially obstructing large mass was found in the recto-sigmoid colon. The mass was partially circumferential (involving one-third of the lumen circumference). The mass measured two cm in length. In addition, its diameter measured seven mm. No bleeding was present. Area was tattooed with an injection of 0.5 mL of Teri ink. The polyp was removed with a hot snare and The polyp was removed with a saline injection-lift technique using a hot snare. Resection and retrieval were complete. Verification of patient identification for the specimen was done. Estimated blood loss was minimal. A patchy area of the terminal ileum was congested. Biopsies were taken with a cold forceps for histology. Verification of patient identification for the specimen was done. Estimated blood loss was minimal. Impression: - Rule out malignancy, partially obstructing tumor in the recto-sigmoid colon. Complete removal was accomplished. Tattooed. - Congested mucosa in the terminal ileum. Biopsied. Recommendation: - Written discharge instructions were provided to the patient. - The signs and symptoms of potential delayed complications were discussed with the patient. - Patient has a contact number available for emergencies. - Return to normal activities tomorrow. - Resume previous diet. - Continue present medications. - Await pathology results. - Repeat colonoscopy for surveillance based on pathology results. Procedure Code(s): --- Professional --- 99122, Colonoscopy, flexible; with removal of tumor(s), polyp(s), or other lesion(s) by snare technique 36455, Colonoscopy, flexible; with directed submucosal injection(s), any substance 85709, 59, Colonoscopy, flexible; with biopsy, single or multiple CPT copyright 2017 [employer]. All rights reserved. The codes documented in this report are preliminary and upon brine process operator review may be revised to meet current compliance requirements. Aric Donato DO 01/11/2022 9:31:48 AM This report has been signed electronically. Number of Addenda: 0 Note Initiated On: 01/11/2022 8:36 AM
--- NOTE | 2022-01-11 09:33 | OP.CCLET_ITS ---
01/11/2022 Patricio Kaminski [address] [place] [address] Re : Colonoscopy procedure for Zuleika Driver Dear Dr. Kaminski This procedure was performed on Tuesday, January 11, 2022. My impressions and recommendations are as follows: Impressions : - Rule out malignancy, partially obstructing tumor in the recto-sigmoid colon. Complete removal was accomplished. Tattooed. - Congested mucosa in the terminal ileum. Biopsied. Recommendations : - Written discharge instructions were provided to the patient. - The signs and symptoms of potential delayed complications were discussed with the patient. - Patient has a contact number available for emergencies. - Return to normal activities tomorrow. - Resume previous diet. - Continue present medications. - Await pathology results. - Repeat colonoscopy for surveillance based on pathology results. My findings are described in the full procedure note, which is enclosed. If I can be of further assistance, please feel free to contact me at . Sincerely, Aric Donato DO 01/11/2022 9:31:48 AM This report has been signed electronically.
[2022-01-11 09:38] VITALS: BP 117/82; BP 128/81; PULSE 70; RESP 18; O2SAT 100
[2022-01-11 09:40] VITALS: BP 117/82; BP 131/80; PULSE 67; RESP 18; TEMP 36; O2SAT 100
[2022-01-11 10:10] VITALS: BP 117/82
== END 2022-01-11 10:21 | disposition home or self-care (01) ==
LOC: EN 07:27 → AC 07:28
PROVIDERS: PCP Student in an Organized Health Care Education/Training Program; Referring Provider Student in an Organized Health Care Education/Training Program; Visit Provider Internal Medicine Gastroenterology
PROC: 0DJD8ZZ Inspection of Lower Intestinal Tract, Via Natural or Artificial Opening Endoscopic (ICD-10-PCS; CPT 45378; principal; 2022-01-11 08:25)
DX: C18.7 Malignant neoplasm of sigmoid colon (principal); K29.50 Unspecified chronic gastritis without bleeding; F17.200 Nicotine dependence, unspecified, uncomplicated; K44.9 Diaphragmatic hernia without obstruction or gangrene; K31.89 Other diseases of stomach and duodenum; K21.00 Gastro-esophageal reflux disease with esophagitis, without bleeding; Z79.899 Other long term (current) drug therapy
CPT/HCPCS: 45385; 45381; 45380; 43239; 88305; 88313; 88342; J7120; A4216; A4648; J2405

== ENCOUNTER → 2022-02-01 | Outpatient (CLI) | payer BC, SELFPAY ==
--- NOTE | 2022-02-01 13:13 | CT_ITS ---
STUDY: CT ABDOMEN AND PELVIS WITH CONTRAST REASON FOR EXAM: Female, 51 years old. COLON CANCER RECTOSIGMOID -- IV AND ORAL CONTRAST. History of a prior thyroidectomy for thyroid carcinoma. RADIATION DOSAGE (If Supplied By Facility): CTDIvol = ( 16.81 ) mGy, DLP = ( 1048.06 ) mGycm TECHNIQUE: Transaxial images were obtained from the dome of the diaphragm to the symphysis pubis with oral contrast. Oral and amp; IV Gastrografin and amp; 100mL Isovue-300 was administered. Sagittal and coronal images were reconstructed. Individualized dose optimization techniques were used for this CT. COMPARISON: None. FINDINGS: The visualized lung bases are unremarkable. The visualized portions of the heart are within normal limits. Normal liver. The patient is status post cholecystectomy. Normal spleen. Normal pancreas. Normal bilateral adrenal glands. Normal right kidney. Normal left kidney. Residual food particles seen in the stomach. Normal small intestine. Large amount of fecal material is seen in the colon. Findings suggestive of rectal wall thickening. The appendix is visualized and appears normal. Normal abdominal aorta. Normal inferior vena cava. Normal retroperitoneum. Normal urinary bladder. There is absence of the uterus consistent with a prior hysterectomy. There is a 1.7 cm dominant follicle in the left ovary. Normal abdominal wall. There are diffuse degenerative changes of the visualized lumbar spine. CT/Abdomen/Pelvis WITH Contrast IMPRESSION: Findings suggestive of thickening of the rectal wall or Large amount of fecal material is seen in the colon. Status post hysterectomy. Electronically Signed: Everette You MD at 14:34 EST ,
== END | disposition home or self-care (01) ==
LOC: CT 13:13
PROVIDERS: PCP Student in an Organized Health Care Education/Training Program; Referring Provider Internal Medicine Hematology & Oncology; Visit Provider Internal Medicine Hematology & Oncology
DX: D01.0 Carcinoma in situ of colon (principal); Z90.710 Acquired absence of both cervix and uterus; Z90.49 Acquired absence of other specified parts of digestive tract
CPT/HCPCS: 74177; Q9967

== ENCOUNTER 2022-03-29 07:51 | Day surgery (SDC) | payer BC, SELFPAY ==
[2022-03-29] VITALS (7 sets, daily range): BP systolic 109–121; BP diastolic 69–78; PULSE 55–70; RESP 14–16; TEMP 36.1–36.7; O2SAT 99–100; BMI 26.6
[2022-03-29] MEDS: Lactated Ringers 1,000 ML 15 ML IV (08:00)
--- NOTE | 2022-03-29 08:30 | COLBX_PTH ---
PATIENT: SILVINO POZO LOC: EN U#:[id number] AGE/SX: 51/F ROOM: RE03/29/[address]: Dr. Aric Donato DO : 1970 BED: DIS: 03/29/2022 SPEC #: [id number] RECD: 03/29/22 11:50 STATUS: SULAIMAN CHARY #: [id number] EDU: 03/29/22 08:[address]: Aric Donato DEPT: SURGICAL PATHOLOGY RECD BY: Latesha Jordan ENTERED: 03/29/22 13:46 SP TYPE: COLON BX OTHR DR: Dr. Patricio Kaminski DO Tissues: A - Cecum, NOS B - Ileum, NOS C - POLYP Procedures: Surgery Specimen Level IV HEADER OPERATION: Colonoscopy (MAC), polypectomy, biopsy PRE-OP DIAGNOSIS: Colon adenocarcinoma in situ, diarrhea alternating with constipation TISSUE SUBMITTED: A - Polyp ileocecal valve x2, B - Terminal ileum biopsy, C - Previous polypectomy site MICROSCOPIC DIAGNOSIS A. Ileocecal valve polyp, biopsy: Hyperplastic polyp. Focal mucosal skin type change. B. Terminal ileum, biopsy: No pathologic change. C. Colon, previous polypectomy site, biopsy: No pathologic change. AM:art 03/30/2022 MICROSCOPIC DESCRIPTION Slides are reviewed. GROSS DESCRIPTION A - Received in fixative is one container labeled with the patient's name and designated polyp ileocecal valve x2. The specimen consists of two mckay-pink polyps measuring 0.6 x 0.6 x 0.2 cm and 1.2 x 1 x 0.3 cm. The larger polyp is bisected. The larger polyp is also inked black. The entire specimen is submitted in two one cassette. B - Received in fixative is one container labeled with the patient's name and designated terminal ileum biopsy. The specimen consists of multiple irregular fragments of light mckay soft tissue that in aggregate measure 1.3 x 0.3 x 0.1 cm. The specimen is totally submitted in one cassette. C - Received in fixative is one container labeled with the patient's name and designated previous polypectomy site biopsy. The specimen consists of multiple irregular fragments of light mckay soft tissue that in aggregate measure 1 x 0.4 x 0.1 cm. The specimen is totally submitted in one cassette. / SJ:art 03/29/2022 TC:5 CPT: 62024 x3
--- NOTE | 2022-03-29 08:33 | PCM.HP.BLA ---
History and Physical Date of Admission: 03/29/22 [facility] Chief Complaint: colon adenocarcinoma in situ Details: SILVINO POZO, is a 51 F who presents to the office today for f/u EGD and colonoscopy. On EGD she has small hiatal hernia, mild gastritis, negative H pylori, no pathology in duodenum, no pathology in esophagus. On colonoscopy she had a partially obstructing tumor in the rectosigmoid colon which was a tubulovillous adenoma with focal adenocarcinoma in situ, noninvasive. She had had painless rectal bleeding; none since polyp was removed. Also realizes she was having some mucus per rectum which has resolved. Dr Donato marked the polyp site with tattoo. Pt was evaluated by oncologist Dr Roman who recommended CXR, CEA, CT abd pel w/ oral and IV contrast. CXR and CEA are negative. CT is scheduled for 02/01/22. Positive family history for colon cancer (grandfather) and personal history of thyroid cancer. 01/25/22 baseline CEA <0.6 01/25/22 CXR negative Her constipation which was sometimes alternating with diarrhea was very well controlled metamucil. Has been constipated since colonoscopy. She has quit smoking. 01/11/22 EGD and Colonoscopy Impression: ? - Z-line irregular, 38 cm from the incisors. ? Biopsied. ? - Small hiatal hernia. ? - Gastritis. Biopsied. ? - No gross lesions in the second portion of the ? duodenum. Biopsied. Impression: ? - Rule out malignancy, partially obstructing ? tumor in the recto-sigmoid colon. Complete ? removal was accomplished. Tattooed. ? - Congested mucosa in the terminal ileum. ? Biopsied. MICROSCOPIC DIAGNOSIS A. Gastric antrum biopsy: ?Mild gastritis. ?See microscopic description and comment. Negative H pylori B. Duodenum biopsy: ?Fragments of small intestinal mucosa, no pathologic diagnosis. C. Distal esophagus biopsy: ?Fragments of gastroesophageal mucosa with chronic inflammation. ?Intestinal metaplasia (goblet cell metaplasia) not identified. ?See comment. D. Terminal ileum biopsy: ?Fragments of small intestinal mucosa, no pathologic diagnosis. E. 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 E.? Invasive carcinoma is not seen.? Correlation with clinical, endoscopic findings and appropriate follow up are necessary ROS Const Constitutional: No fatigue ENT ENT: No difficulty swallowing Gastro GI: Positive for abdominal pain, change in bowel habits, constipation and diarrhea; No belching, bloating, change in stool character, coffee ground emesis, cramping, heartburn, difficulty swallowing, feeling full early, excessive flatus, incontinent of stools, Vomiting blood/hematemesis, Blood in stool, loose stools, Black,tarry stools, nausea/dyspepsia, pain with swallowing, vomiting or other Musc Musculoskeletal: Positive for joint pain and Arthritis Skin Skin: No yellowing of the eye or itchy eyes Psych Psychiatric: Positive for anxiety and No depression Endo Endocrine: No fatigue Aller/Imm Allergy/Immunologic: No itchy eyes Dago/Lymp Hematologic/Lymphatic: No easy bleeding or easy bruising Exam Const General: cooperative, healthy appearing and comfortable Orientation: alert, awake and oriented x3 Quality Reporting Tobacco Screening ([facility] 138) Smoking Status: Current every day smoker Assessment and Plan Assessment and Plan (1) 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 Per Dr Roman's recommendation she is scheduled for repeat colonoscopy with Dr Donato in 3 months, f/u 2 wks later in office. Congratulated her on smoking cessation. (2) Alternating constipation and diarrhea: ?Status:?Acute ?Plan: She will resume metamucil since that was very effective. ? ? ? Medications: New omeprazole 40 mg? PO BID 180 caps 1RF ? ? I have examined the patient and the H&P has been reviewed. There are no clinical changes since date of exam.
--- NOTE | 2022-03-29 09:20 | OP.COLON_ITS ---
Patient Name: Zuleika Driver Procedure Date: 03/29/2022 8:33 AM Date of : 1970 Age: 51 Procedure: Colonoscopy Indications: Colorectal cancer Providers: Aric Donato DO Medicines: Monitored Anesthesia Care Patient Profile: This is a 51 year old female. Refer to note in patient chart for documentation of history and physical. Last Colonoscopy: within the past 3 months. Complications: No immediate complications. Procedure: Pre-Anesthesia Assessment: - Prior to the procedure, a History and Physical was performed, and patient medications and allergies were reviewed. The patient is competent. The risks and benefits of the procedure and the sedation options and risks were discussed with the patient. All questions were answered and informed consent was obtained. Patient identification and proposed procedure were verified by the physician in the pre-procedure area. Mental Status Examination: alert and oriented. Airway Examination: normal oropharyngeal airway and neck mobility. Respiratory Examination: clear to auscultation. CV Examination: normal. Prophylactic Antibiotics: The patient does not require prophylactic antibiotics. Prior Anticoagulants: The patient has taken no previous anticoagulant or antiplatelet agents. ASA Grade Assessment: II - A patient with mild systemic disease. After reviewing the risks and benefits, the patient was deemed in satisfactory condition to undergo the procedure. The anesthesia plan was to use monitored anesthesia care (MAC). Immediately prior to administration of medications, the patient was re-assessed for adequacy to receive sedatives. The heart rate, respiratory rate, oxygen saturations, blood pressure, adequacy of pulmonary ventilation, and response to care were monitored throughout the procedure. The physical status of the patient was re-assessed after the procedure. After I obtained informed consent, the scope was passed under direct vision. Throughout the procedure, the patient's blood pressure, pulse, and oxygen saturations were monitored continuously. The Colonoscope was introduced through the anus and advanced to 10 cm into the ileum. The colonoscopy was performed without difficulty. The patient tolerated the procedure well. The quality of the bowel preparation was good. Scope In: 8:43:52 AM Scope Withdrawal Time 0 hours 21 minutes 46 seconds Scope Out: 9:09:55 AM Total Procedure Duration Time 0 hours 26 minutes 3 seconds Findings: The perianal and digital rectal examinations were normal. A single (solitary) six mm ulcer was found in the cecum and at the ileocecal valve. No bleeding was present. No stigmata of recent bleeding were seen. Area was successfully injected with 5 mL saline for a lift polypectomy. The polyp was removed with a hot snare and The polyp was removed with a saline injection-lift technique using a hot snare. Resection and retrieval were complete. Verification of patient identification for the specimen was done. To prevent bleeding post-intervention, one hemostatic clip was successfully placed. There was no bleeding at the end of the procedure. The terminal ileum contained a few three mm ulcers. No bleeding was present. Biopsies were taken with a cold forceps for histology. Verification of patient identification for the specimen was done. Estimated blood loss was minimal. Impression: - A single (solitary) ulcer in the cecum and at the ileocecal valve. Injected. Clip was placed. - A few ulcers in the terminal ileum. Biopsied. Recommendation: - Discharge patient to home. - Resume previous diet. - Continue present medications. - Await pathology results. - Repeat colonoscopy in 6 months to check healing. Procedure Code(s): --- Professional --- 04236, Colonoscopy, flexible; with removal of tumor(s), polyp(s), or other lesion(s) by snare technique 55924, Colonoscopy, flexible; with directed submucosal injection(s), any substance 11038, 59, Colonoscopy, flexible; with biopsy, single or multiple CPT copyright 2017 [employer]. All rights reserved. The codes documented in this report are preliminary and upon l d rn review may be revised to meet current compliance requirements. Aric Donato DO 03/29/2022 9:20:33 AM This report has been signed electronically. Number of Addenda: 0 Note Initiated On: 03/29/2022 8:33 AM
--- NOTE | 2022-03-29 09:22 | OP.CCLET_ITS ---
03/29/2022 Patricio Kaminski [address] [place] [address] Re : Colonoscopy procedure for Zuleika Driver Dear Dr. Kaminski This procedure was performed on Tuesday, March 29, 2022. My impressions and recommendations are as follows: Impressions : - A single (solitary) ulcer in the cecum and at the ileocecal valve. Injected. Clip was placed. - A few ulcers in the terminal ileum. Biopsied. Recommendations : - Discharge patient to home. - Resume previous diet. - Continue present medications. - Await pathology results. - Repeat colonoscopy in 6 months to check healing. My findings are described in the full procedure note, which is enclosed. If I can be of further assistance, please feel free to contact me at . Sincerely, Aric Friend, 03/29/2022 9:20:33 AM This report has been signed electronically.
== END 2022-03-29 10:31 | disposition home or self-care (01) ==
LOC: EN 07:52 → AC 07:53
PROVIDERS: PCP Student in an Organized Health Care Education/Training Program; Referring Provider Internal Medicine Gastroenterology; Visit Provider Internal Medicine Gastroenterology
PROC: 0DJD8ZZ Inspection of Lower Intestinal Tract, Via Natural or Artificial Opening Endoscopic (ICD-10-PCS; CPT 45378; principal; 2022-03-29 08:25)
DX: K63.3 Ulcer of intestine (principal); K44.9 Diaphragmatic hernia without obstruction or gangrene; R19.7 Diarrhea, unspecified; Z80.0 Family history of malignant neoplasm of digestive organs; Z87.891 Personal history of nicotine dependence; K29.70 Gastritis, unspecified, without bleeding; K59.00 Constipation, unspecified
CPT/HCPCS: 45385; 45380; 45381; 88305; J7120; J2405

== ENCOUNTER → 2022-04-12 | Outpatient (CLI) | payer BC, SELFPAY | END | disposition home or self-care (01) | PROVIDERS: Nurse Practitioner Adult Health; PCP Student in an Organized Health Care Education/Training Program; Referring Provider Internal Medicine Gastroenterology; Visit Provider Internal Medicine Gastroenterology | DX: K63.3 Ulcer of intestine (principal) | CPT/HCPCS: 36415 ==

== ENCOUNTER → 2022-04-26 | Outpatient (CLI) | payer BC, SELFPAY ==
[2022-04-26 16:33] LABS: Absolute Neutrophil Count 3.2 X10^3/uL (2.0-7.7); Basophil# 0.05 X10^3/uL; Eosinophil# 0.12 X10^3/uL; Eosinophils% 2.3 % (0-5); Hemoglobin 14.1 g/dL (12.0-15.0); Lymphocyte % 29.1 % (19-41); Mean Corp Hgb Conc 34.4 g/dL (32-36); Mean Corpuscular Hgb 31.6 pg (27.0-32.0); Mean Corpuscular Volume 91.9 fL (81-99); Mean Platelet Vol. 10.9 fl (6.2-12.0); Monocyte% 5.8 % (0-10); NRBC Flagged by Analyzer 0 % (0-5); Neutrophil # 3.18 X10^3/uL (2.7-7.7); Neutrophil % 61.6 % (47-70); Platelet Count 256 K/mm3 (150-450); RBC Distribution Width SD 40.9 fl (35.1-43.9); Red Blood Count 4.46 M/mm3 (4.2-5.4); White Blood Count 5.2 K/mm3 (4.4-11.0)
[2022-04-26 16:34] LABS: ALB/GLOB Ratio 1.1 RATIO (0.9-2.4); AST(SGOT) 20 U/L (15-37); Alanine Aminotransfer ALT/SGPT 26 U/L (13-56); Albumin, Serum 3.7 g/dL (3.2-5.0); Alkaline Phosphatase 58 U/L (45-117); Anion Gap 6 (5-15); BUN 11 mg/dL (7-18); BUN/Creat Ratio 15.3 RATIO (10-20); CRP < 2.90 mg/L (0.0-3.0); Calcium,Total 9.2 mg/dL (8.5-10.1); Chloride 105 mmol/L (98-107); Creatinine, Serum 0.72 mg/dL (0.55-1.02); EST Glomerular Filtration Rate 92 mL/min (>60); Est Glom Filt Rate - Afr Amer 111 mL/min (>60); Globulin 3.3 g/dL (2.2-4.2); Glucose 93 mg/dL (74-106); LDH 158 U/L (84-246); Sodium Level 140 mmol/L (136-145)
[2022-04-26 17:13] LABS: Erythrocyte Sedimentation Rate 16 mm/hr (0-30)
[2022-04-28 15:09] LABS: Endomysial Antibody IgA Negative (Negative)
[2022-04-28 15:57] LABS: Immunoglobulin A 129 mg/dL (87-352); t-Transglutaminase IgA <2 U/mL (0-3)
[2022-04-28 16:09] LABS: Anti-Centromere B Ab <0.2 AI (0.0-0.9); Anti-Chromatin <0.2 AI (0.0-0.9); Anti-Jo <0.2 AI (0.0-0.9); Anti-Scleroderma-70 AB <0.2 AI (0.0-0.9); RNP Ab <0.2 AI (0.0-0.9); SJOGREN'S Anti-SS-A test < 0.2 AI (0.0-0.9); SJOGREN'S Anti-SS-B test < 0.2 AI (0.0-0.9); Smith Ab <0.2 AI (0.0-0.9)
[2022-04-28 17:28] LABS: Anti-dsDNA Ab 4 IU/mL (0-9)
[2022-05-01 22:07] LABS: Alpha-1-Globulins 0.3 g/dL (0.0-0.4); Alpha-2-Globulins 0.8 g/dL (0.4-1.0); Cytoplasmic Ab (C-ANCA) <1:20 titer (Neg:<1:20); Gamma Globulin 0.9 g/dL (0.4-1.8); Immunoglobulin A 127 mg/dL (87-352); Immunoglobulin E 15 IU/mL (6-495); Immunoglobulin G 826 mg/dL (586-1602); Immunoglobulin M 138 mg/dL (26-217); PROEL- TOTAL PROTEIN 6.9 g/dL (6.0-8.5)
[2022-05-01 22:21] LABS: Perinuclear Ab (P-ANCA) <1:20 titer (Neg:<1:20)
== END | disposition home or self-care (01) ==
LOC: LAB 15:22
PROVIDERS: Nurse Practitioner Adult Health; PCP Student in an Organized Health Care Education/Training Program; Referring Provider Internal Medicine Gastroenterology; Visit Provider Internal Medicine Gastroenterology
DX: K63.3 Ulcer of intestine (principal); R76.0 Raised antibody titer
CPT/HCPCS: 36415; 80053; 82784; 82785; 83516; 83615; 84165; 85025; 85652; 86140; 86225; 86235; 86255; 86256; 86334

== ENCOUNTER → 2022-05-02 | Outpatient (CLI) | payer BC, SELFPAY ==
[2022-05-06 12:32] LABS: Calprotectin, Stool 70 ug/g (0-120)
== END | disposition home or self-care (01) ==
LOC: LABSPEC 10:58
PROVIDERS: PCP Student in an Organized Health Care Education/Training Program; Referring Provider Nurse Practitioner Adult Health; Visit Provider Nurse Practitioner Adult Health
DX: K63.3 Ulcer of intestine (principal); R76.0 Raised antibody titer
CPT/HCPCS: 83630; 83993

== ENCOUNTER 2022-09-19 13:17 | Day surgery (SDC) | payer BC, SELFPAY ==
--- NOTE | 2022-09-19 | COLBX_PTH ---
PATIENT: SILVINO POZO LOC: EN U#:[id number] AGE/SX: 52/F ROOM: RE09/19/[address]: Dr. Aric Donato DO : 1970 BED: DIS: 09/19/2022 SPEC #: [id number] RECD: 09/19/22 16:59 STATUS: SULAIMAN CHARY #: [id number] EDU: 09/19/22 00:[address]: Aric Donato DEPT: SURGICAL PATHOLOGY RECD BY: Jean Paul Holcomb ENTERED: 09/20/22 11:42 SP TYPE: COLON BX OT DR: Dr. 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 Transverse colon polyp, biopsy: Fragments of hyperplastic polyp. B. Sigmoid colon polyp, biopsy: Polypoid fragment of benign colonic mucosa. See comment. AM:art 09/21/2022 COMMENT B. Neither hyperplastic nor adenomatous change is identified. Clinical correlation is suggested. MICROSCOPIC DESCRIPTION Slides are reviewed. GROSS DESCRIPTION A - Received in fixative is one container labeled with the patient's name and designated transverse polyp x2. The specimen consists of multiple irregular fragments of light mckay soft tissue that in aggregate measure 2.0 x 1.0 x 0.2 cm. The specimen is totally submitted in one cassette. B - Received in fixative is one container labeled with the patient's name and designated sigmoid polypectomy site. The specimen consists of two irregular fragments of light mckay soft tissue that in aggregate measure 0.5 x 0.3 x 0.1 cm. The specimen is totally submitted in one cassette. / SJ:art 09/20/2022 TC:5 CPT: 40620 x2
[2022-09-19 13:32] VITALS: BP 131/74; PULSE 67; RESP 17; TEMP 36.2; O2SAT 100; BMI 26.4
[2022-09-19] MEDS: Lactated Ringers 1,000 ML 15 ML IV (13:35)
--- NOTE | 2022-09-19 14:46 | HP.PCM_ITS ---
History and Physical Date of Admission: 09/19/22 Chief Complaint: f/u colonoscopy Details: SILVINO POZO, is a 51 F who presents to the office today for follow-up colonoscopy. In April 2021 Dr. 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 The entire polyp was removed. The March 2022 colonoscopy revealed single ulcer in the cecum and at the ileocecal valve which was injected for lift polypectomy and a clip was placed; a few 3 mm ulcers in the terminal ileum. Biopsy at the previous polypectomy site in the colon showed no pathologic change. A polyp at the ileocecal valve was a hyperplastic polyp. No pathologic change on biopsies of ulcers in the terminal ileum. Dr. Donato recommended lab tests for inflammatory bowel disease, patient plans to get those done today. She has no GI complaints. Denies nausea, vomiting, heartburn, abdominal pain, early satiety, diarrhea, constipation, melena, hematochezia. 01/25/22 baseline CEA <0.6 01/25/22 CXR negative Positive family history for colon cancer (grandfather) and personal history of thyroid cancer. 02/01/22 CT/Abdomen/Pelvis WITH Contrast IMPRESSION: Findings suggestive of thickening of the rectal wall or Large amount of fecal material is seen in the colon. Status post hysterectomy. 03/29/22 Colonoscopy Findings: ?? ? The perianal and digital rectal examinations were normal. ?? ? A single (solitary) six mm ulcer was found in the cecum and at the ?? ? ileocecal valve. No bleeding was present. No stigmata of recent bleeding ?? ? were seen. Area was successfully injected with 5 mL saline for a lift ?? ? polypectomy. The polyp was removed with a hot snare and The polyp was ?? ? removed with a saline injection-lift technique using a hot snare. ?? ? Resection and retrieval were complete. Verification of patient ?? ? identification for the specimen was done. To prevent bleeding ?? ? post-intervention, one hemostatic clip was successfully placed. There ?? ? was no bleeding at the end of the procedure. ?? ? The terminal ileum contained a few three mm ulcers. No bleeding was ?? ? present. Biopsies were taken with a cold forceps for histology. ?? ? Verification of patient identification for the specimen was done. ?? ? Estimated blood loss was minimal. Impression: ? - A single (solitary) ulcer in the cecum and at ? the ileocecal valve. Injected. Clip was placed. ? - A few ulcers in the terminal ileum. Biopsied. MICROSCOPIC DIAGNOSIS A. Ileocecal valve polyp, biopsy: Hyperplastic polyp. Focal mucosal skin type change. B. Terminal ileum, biopsy: No pathologic change. C. Colon, previous polypectomy site, biopsy: No pathologic change. ROS Const Constitutional: No fatigue ENT ENT: No difficulty swallowing Gastro GI: No abdominal pain, belching, bloating, change in bowel habits, change in stool character, coffee ground emesis, constipation, cramping, diarrhea, heartburn, difficulty swallowing, feeling full early, excessive flatus, incontinent of stools, Vomiting blood/hematemesis, Blood in stool, loose stools, Black,tarry stools, nausea/dyspepsia, pain with swallowing, vomiting or other Musc Musculoskeletal: Positive for Arthritis; No joint pain Skin Skin: No yellowing of the eye or itchy eyes Psych Psychiatric: No anxiety and No depression Endo Endocrine: No fatigue Aller/Imm Allergy/Immunologic: No itchy eyes Dago/Lymp Hematologic/Lymphatic: No easy bleeding or easy bruising Exam Const General: cooperative, healthy appearing and comfortable Orientation: alert, awake and oriented x3 HENMT Head: normal to inspection Eyes Sclera: sclerae normal Resp Effort & Inspection: normal respiratory effort GI Inspection: normal to inspection Quality Reporting Tobacco Screening ([facility] 138) Smoking Status: Current every day smoker Assessment and Plan Assessment and Plan (1) 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 There are no clinical changes since date of exam.
[2022-09-19 15:34] VITALS: BP 127/73; BP 131/74; PULSE 56; RESP 16; TEMP 36.3; O2SAT 100
[2022-09-19 15:40] VITALS: BP 120/76; BP 131/74; PULSE 61; RESP 16; O2SAT 100
--- NOTE | 2022-09-19 15:43 | OP.COLON_ITS ---
Patient Name: Zuleika Driver Procedure Date: 09/19/2022 2:52 PM Date of : 1970 Age: 52 Procedure: Colonoscopy Indications: Colorectal cancer Providers: Aric Donato DO Referring MD: Aric Donato DO Medicines: Monitored Anesthesia Care Patient Profile: This is a 52 year old female. Refer to note in patient chart for documentation of history and physical. Last Colonoscopy: 6 months ago. Complications: No immediate complications. Procedure: Pre-Anesthesia Assessment: - Prior to the procedure, a History and Physical was performed, and patient medications and allergies were reviewed. The patient is competent. The risks and benefits of the procedure and the sedation options and risks were discussed with the patient. All questions were answered and informed consent was obtained. Patient identification and proposed procedure were verified by the physician in the pre-procedure area. Mental Status Examination: alert and oriented. Airway Examination: normal oropharyngeal airway and neck mobility. Respiratory Examination: clear to auscultation. CV Examination: normal. Prophylactic Antibiotics: The patient does not require prophylactic antibiotics. Prior Anticoagulants: The patient has taken no previous anticoagulant or antiplatelet agents. ASA Grade Assessment: II - A patient with mild systemic disease. After reviewing the risks and benefits, the patient was deemed in satisfactory condition to undergo the procedure. The anesthesia plan was to use monitored anesthesia care (MAC). Immediately prior to administration of medications, the patient was re-assessed for adequacy to receive sedatives. The heart rate, respiratory rate, oxygen saturations, blood pressure, adequacy of pulmonary ventilation, and response to care were monitored throughout the procedure. The physical status of the patient was re-assessed after the procedure. After I obtained informed consent, the scope was passed under direct vision. Throughout the procedure, the patient's blood pressure, pulse, and oxygen saturations were monitored continuously. The Colonoscope was introduced through the anus and advanced to the cecum, identified by appendiceal orifice and ileocecal valve. The colonoscopy was performed without difficulty. The patient tolerated the procedure well. The quality of the bowel preparation was fair. Scope In: 2:58:03 PM Scope Withdrawal Time 0 hours 22 minutes 49 seconds Scope Out: 3:25:54 PM Total Procedure Duration Time 0 hours 27 minutes 51 seconds Findings: The perianal and digital rectal examinations were normal. A tattoo was seen in the recto-sigmoid colon. A post-polypectomy scar was found at the tattoo site. Biopsies were taken with a cold forceps for histology. Verification of patient identification for the specimen was done. Estimated blood loss was minimal. Two sessile polyps were found in the transverse colon. The polyps were 1 to 2 mm in size. These polyps were removed with a hot snare. Resection and retrieval were complete. Verification of patient identification for the specimen was done. Estimated blood loss was minimal. Area was successfully injected with 5 mL Teri ink for tattooing. Estimated blood loss was minimal. Impression: - Preparation of the colon was fair. - A tattoo was seen in the recto-sigmoid colon. A post-polypectomy scar was found at the tattoo site. Biopsied. - Two 1 to 2 mm polyps in the transverse colon, removed with a hot snare. Resected and retrieved. Recommendation: - Repeat colonoscopy in 6 months for surveillance. - Continue present medications. Procedure Code(s): --- Professional --- 89983, Colonoscopy, flexible; with removal of tumor(s), polyp(s), or other lesion(s) by snare technique 78952, 59, Colonoscopy, flexible; with biopsy, single or multiple 36305, Colonoscopy, flexible; with directed submucosal injection(s), any substance CPT copyright 2017 [employer]. All rights reserved. The codes documented in this report are preliminary and upon nursing assistant review may be revised to meet current compliance requirements. Aric Donato DO 09/19/2022 3:42:33 PM This report has been signed electronically. Number of Addenda: 0 Note Initiated On: 09/19/2022 2:52 PM
--- NOTE | 2022-09-19 15:43 | OP.CCLET_ITS ---
09/19/2022 Patricio Kaminski [address] [place] [address] Re : Colonoscopy procedure for Zuleika Driver Dear Dr. Kaminski This procedure was performed on Monday, September 19, 2022. My impressions and recommendations are as follows: Impressions : - Preparation of the colon was fair. - A tattoo was seen in the recto-sigmoid colon. A post-polypectomy scar was found at the tattoo site. Biopsied. - Two 1 to 2 mm polyps in the transverse colon, removed with a hot snare. Resected and retrieved. Recommendations : - Repeat colonoscopy in 6 months for surveillance. - Continue present medications. My findings are described in the full procedure note, which is enclosed. If I can be of further assistance, please feel free to contact me at . Sincerely, Aric Donato, 09/19/2022 3:42:33 PM This report has been signed electronically.
[2022-09-19 15:45] VITALS: BP 117/72; BP 131/74; PULSE 55; RESP 16; O2SAT 100
[2022-09-19 15:47] VITALS: BP 110/72; BP 131/74; PULSE 55; RESP 16; O2SAT 100
[2022-09-19 16:13] VITALS: BP 131/74
== END 2022-09-19 16:43 | disposition home or self-care (01) ==
LOC: EN 13:18 → AC 13:19
PROVIDERS: PCP Student in an Organized Health Care Education/Training Program; Referring Provider Student in an Organized Health Care Education/Training Program; Visit Provider Internal Medicine Gastroenterology
PROC: 0DJD8ZZ Inspection of Lower Intestinal Tract, Via Natural or Artificial Opening Endoscopic (ICD-10-PCS; CPT 45378; principal; 2022-09-19 14:25)
DX: D09.9 Carcinoma in situ, unspecified (principal); K63.5 Polyp of colon; Z90.710 Acquired absence of both cervix and uterus; F17.200 Nicotine dependence, unspecified, uncomplicated; Z80.0 Family history of malignant neoplasm of digestive organs
CPT/HCPCS: 45381; 45385; 45380; 88305; J7120; A4648; J2405

== ENCOUNTER 2023-11-05 07:26 | Day surgery (SDC) | payer BC, SELFPAY ==
[2023-11-05] VITALS (8 sets, daily range): BP systolic 108–122; BP diastolic 66–78; PULSE 58–75; RESP 16; TEMP 36.3–36.6; O2SAT 100; BMI 26.5
[2023-11-05] MEDS: Lactated Ringers 1,000 ML 15 ML IV (07:52)
--- NOTE | 2023-11-05 07:54 | PCM.PRE.AN2 ---
ASA Classification* ASA Classification ASA Classification: 2 Assessment & Plan Anesthesia* Anesthesia Assessment Anesthesia Assessment: Discussed sedation and/or anesthesia options, risks, benefits, and alternatives with patient/parents/legal guardian/POA. Questions invited. The patient/parents/legal guardian/POA seems to understand and agrees to proceed with anesthesia plan. Reviewed the physical assessment, medical history, allergy history and patient home medications list prior to surgery/procedure/anesthetic and documented any changes. Performed airway and anesthesia risk assessments. Anesthesia Type Anesthesia Type: MAC Anesthesia Focused Assessment* Airway Assessment Mouth opens: >3 cm Mallampati Score: II Focused Labs Anesthesia Preop lab: CBC WBC 5.2 K/mm3 (4.4-11.0) 04/26/22 15:24 RBC 4.46 M/mm3 (4.2-5.4) 04/26/22 15:24 Hgb 14.1 g/dL (12.0-15.0) 04/26/22 15:24 Hct 41.0 % (37-47) 04/26/22 15:24 Plt Count 256 K/mm3 (150-450) 04/26/22 15:24 CHEMISTRY Potassium 4.0 mmol/L (3.5-5.1) 04/26/22 15:24 Sodium 140 mmol/L (136-145) 04/26/22 15:24 BUN 11 mg/dL (7-18) 04/26/22 15:24 Creatinine 0.72 mg/dL (0.55-1.02) 04/26/22 15:24 Glucose 93 mg/dL (74-106) 04/26/22 15:24 TSH 0.12 uIU/mL (0.358-3.74) L 05/07/20 10:43 COAG PT 13.6 SECONDS (11.7-14.9) 02/07/18 11:21 Urine Test Negative Negative 02/14/18 07:14 Pre-Assessment Diagnosis/Proposed Procedure Planned Operative Procedure(s): COLONOSCOPY Anesthesia History 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 When Was Last Pacemaker Check QUESTION #4 FULL TEXT: You/Your Family Experience fever (hyperthermia) with Anesthesia Last Oral Intake Last Oral intake: Last Oral Intake NPO since Meds taken in AM with sips of water? 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 Female Yes 10/31/23 14:42 HX of Motion Sickness No 10/31/23 14:42 HX of N/V After Surgery No 10/31/23 14:42 Non-Smoker No 10/31/23 14:42 Duration of Surgery greater No 10/31/23 14:42 than 60 minutes Number of Risk Factors 1 10/31/23 14:42 PONV Score Low Risk 10/31/23 14:42 Height & Weight Height & Weight: Anesthesia: Height & Weight Height 5 ft 6 in 09/19/22 13:32 Respiratory Assessment Respiratory Assessment - knot saw operator: Respiratory Tract Infection Hx - knot saw operator Hx Respiratory Tract Infection No 10/31/23 14:42 STOP Sleep Apnea STOP Sleep Apnea - knot saw operator: STOP Sleep Apnea - knot saw operator Hx Hypertension No 10/31/23 14:42 Hx Sleep Apnea No 10/31/23 14:42 CPAP BIPAP Do you snore loudly (louder No 10/31/23 14:42 than talking or can be heard Do you often feel tired/ No 10/31/23 14:42 fatigued/ sleepy during daytime? Has anyone observed you stop No 10/31/23 14:42 breathing during sleep? STOP Results Negative 10/31/23 14:42 QUESTION #5 FULL TEXT : Do you snore loudly (louder than talking or can be heard through closed doors)? 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 Specify any problems Hx of Preganancy in last 3 No 10/31/23 14:42 Months Nurse Filling Out Transfusion [facility] 10/31/23 14:42 & Questions: Date: 10/31/23 10/31/23 14:42 Time: 14:49 10/31/23 14:42 Patient unable to answer at this time (ie. confused, unrespo /Reproduction History /Reproductive History - knot saw operator: /Reproductive Hx- knot saw operator Hx Now No 10/31/23 14:42 Gestational Age (in weeks): EDC: Hx Hx Para Hx Section SAB No 10/31/23 14:42 Active Medications Active Medications: Current Medications Generic Name Dose Route Start Last Admin Trade Name Freq PRN Reason Stop Dose Admin Lactated Ringer's 1,000 mls @ 15 mls/hr 11/05/23 07:45 11/05/23 07:52 IV 15 mls/hr .Q48H ALISE Administration PFSH Medical History Wears glasses Cancer Migraine headache History of hiatal hernia History of Crohn's disease Alcohol use Rheumatoid arthritis Back pain Smoker History of stress test History of irregular heartbeat Uterine fibroid Rectal/anal hemorrhage Constipation Epigastric pain Postoperative hypothyroidism Thyroid cancer GERD (gastroesophageal reflux disease) Diarrhea Nausea Abdominal pain Anxiety History of back problems Vitamin deficiency Goiter History of breast lump History of UTI history of bone fractures Arthritis Abnormal uterine bleeding History of thyroid cancer Thyroid disorder Home Medications ?Medication ?Instructions ?Recorded ?Last Taken ?Type cholecalciferol (vitamin D3) 125 5,000 unit PO DAILY 11/05/17 Unknown History mcg (5,000 unit) capsule lactobacillus combination no.8 3 3,000 mmu cells PO DAILY 11/05/17 Unknown History billion cell capsule (Adult Probiotic) glucosamine-chondroitin 750 mg-600 2 tab PO DAILY 01/30/19 Unknown History mg tablet biotin 10,000 mcg capsule 10,000 mcg PO DAILY 03/11/20 Unknown History levothyroxine 175 mcg tablet 175 mcg PO MOTUWETHFRSA 06/29/20 09/19/22 03:30 History cyclobenzaprine 10 mg tablet 10 mg PO DAILY Spasms 08/16/21 Unknown History levothyroxine 175 mcg capsule 87.5 mcg PO ESCOBEDO 01/09/22 Unknown History phentermine 37.5 mg tablet 37.5 mg PO DAILY 09/14/22 Unknown History estradiol 0.01% (0.1 mg/gram) 0.25 appful vaginal DAILY PRN 10/31/23 Unknown History vaginal cream IRRITATION hydroxychloroquine 200 mg tablet 300 mg PO DAILY 10/31/23 Unknown History magnesium 200 mg tablet 200 mg PO DAILY 10/31/23 Unknown History meloxicam 15 mg tablet 15 mg PO DAILY PRN PAIN 10/31/23 Unknown History multivitamin (Daily Multi-Vitamin 1 tab PO DAILY 10/31/23 Unknown History tablet) prednisone 10 mg tablet 10 mg PO DAILY PRN PAIN 10/31/23 Unknown History tramadol 50 mg tablet 50 mg PO QHS PRN PAIN 10/31/23 Unknown History Allergy/AdvReac Type Severity Reaction Status Date / Time naproxen Allergy Mild Other Verified 11/05/23 07:51 penicillin G Allergy Mild Unknown Verified 11/05/23 07:51 sulfamethoxazole (From Allergy Mild Rash Verified 11/05/23 07:51 Bactrim) trimethoprim (From Bactrim) Allergy Mild Rash Verified 11/05/23 07:51 amoxicillin AdvReac Mild Nausea/Vom/ Verified 11/05/23 07:51 Diarrhea atropine (From ) AdvReac Nausea/Vom/ Verified 11/05/23 07:51 Diarrhea hyoscyamine (From ) AdvReac Nausea/Vom/ Verified 11/05/23 07:51 Diarrhea phenobarbital (From ) AdvReac Nausea/Vom/ Verified 11/05/23 07:51 Diarrhea scopolamine (From ) AdvReac Nausea/Vom/ Verified 11/05/23 07:51 Diarrhea Family History Grandfather Colon cancer paternal Grandfather Prostate cancer maternal Grandmother Thyroid disorder paternal Aunt Esophageal cancer maternal Other Hypertension Surgical History History of esophagogastroduodenoscopy (EGD) Hx laparoscopic cholecystectomy S/P laparoscopic cholecystectomy history right kidney surgery History of total vaginal hysterectomy (TVH) History of shoulder surgery History of back surgery History of thyroidectomy History of bunionectomy H/O dilation and curettage History of tonsillectomy Social History Smoking Status: Current every day smoker tobacco type: e-cigarettes Tobacco: How many years used: 28 alcohol intake: current details: social substance use type: does not use caffeine: Yes Type: coffee what type of physical activity do you participate in: walking seatbelt use: always do you feel safe at home: Yes additional social history: Nubia LING Review of Systems (Anesthesia) ROS Narrative System reviewed and no additional complaints, except as documented.
--- NOTE | 2023-11-05 08:30 | COLBX_PTH ---
PATIENT: SILVINO POZO LOC: EN U#:[id number] AGE/SX: 53/F ROOM: RE11/05/[address]: Dr. Aric Donato DO : 1970 BED: DIS: 11/05/2023 SPEC #: [id number] RECD: 11/05/23 12:28 STATUS: SULAIMAN CHARY #: [id number] EDU: 11/05/23 08:[address]: Aric Donato DEPT: SURGICAL PATHOLOGY RECD BY: Latesha Jordan ENTERED: 11/05/23 13:16 SP TYPE: COLON BX OT DR: Dr. Patricio Kaminski DO Tissues: COLON BIOPSY Procedures: Surgery Specimen Level IV HEADER OPERATION: Colonoscopy with biopsy PRE-OP DIAGNOSIS: Ileum ulcer, adenocarcinoma in situ in villous adenoma TISSUE SUBMITTED: Anastomosis biopsy MICROSCOPIC DIAGNOSIS Anastomosis, biopsy: A fragment of colonic mucosa, no pathologic diagnosis. 11/06/2023 MICROSCOPIC DESCRIPTION Slides are reviewed. GROSS DESCRIPTION Received in fixative is one container labeled with the patient's name and designated Anastomosis biopsy. The specimen consists of one irregular fragment of light mckay soft tissue that measures 0.3 x 0.3 x 0.1 cm. The specimen is totally submitted in one cassette. BRITTANY/ 11/05/2023 TC:4 CPT:50992
--- NOTE | 2023-11-05 08:51 | PCM.HP.BLA ---
History and Physical Date of Admission: 11/05/23 SILVINO POZO, is a 53 F who presents to the office today for follow up. *BGI established .08.18 with epigastrium burning, managing with omeprazole 40mg for 2+years and unsure if it?s still helpful. BM alternate between loose and constipation with incomplete evacuation and recent painless rectal bleeding recently with history of anal fissure; benefiber, coffee/cigarette somewhat helpful with constipation. ? Biochemical 11.01.21 gastrin, amylase WNL ? Stool 12.08.21 fat, elastase WNL ? EGD and colonoscopy 01.11.22 EGD irregular Zline without metaplasia; small hiatal hernia; gastritis. Colonoscopy large obstructing mass, frond-like/villous of RS colon, multifocal high-grade dysplasia and focal adenocarcinoma in situ without invasive carcinoma, submucosal lift with complete resection and retrieval, tattooed; TI congestion. OV .04.19 repeat colonoscopy per [facility] recommendation. Notes smoking cessation. Start omeprazole and Metamucil. ? Colonoscopy .03.20 single 6mm ulcer in cecum/IC valve, submucosal lift polypectomy, hyperplastic; TI few 3mm ulcers [facility] established 02.06.22 recommending biochemical workup and imaging; if WNL monitor via colonoscopy ? CT abd/pel 02.01.22 residual food particles in stomach; large amount of colonic fecal material with suggestion of rectal wall thickening; left ovary dominant follicle 1.7cm OV 2. repeat colonoscopy in six months. ? Biochemical 04.12.22 Crohn?s (apANCA, AMCA) ? Biochemical 3.03.20 CBC, ESR, CMP, LDH, CRP, NED comp, ANCA, JUNO, GAME, celiac WNL. ? Stool 05.02.22 calprotectin, lactoferrin WNL ? Colonoscopy 09.19.22 tattoo site evaluated finding scar, repeat tattoo, pathology polypoid/benign; two transverse sessile hyperplasic polyps. OV 8.9. Reports she is doing well at this time without symptoms that she feels need addressed. OV 09.05.23 pt reports that she is feeling well overall and denies GI symptoms of concern at this time. ROS Const Constitutional: No fatigue, fever(s) or weight change ENT ENT: No difficulty swallowing Gastro GI: No abdominal pain, belching, bloating, change in bowel habits, change in stool character, coffee ground emesis, constipation, cramping, diarrhea, heartburn, difficulty swallowing, feeling full early, excessive flatus, incontinent of stools, Vomiting blood/hematemesis, Blood in stool, loose stools, Black,tarry stools, nausea/dyspepsia, pain with swallowing, vomiting or other Musc Musculoskeletal: Positive for joint pain, stiffness and Arthritis Skin Skin: No yellowing of the eye or itchy eyes Psych Psychiatric: No anxiety and No depression Endo Endocrine: No fatigue or weight change Aller/Imm Allergy/Immunologic: No itchy eyes Dago/Lymp Hematologic/Lymphatic: No easy bleeding or easy bruising Exam Const General: cooperative, healthy appearing and comfortable Orientation: alert, awake and oriented x3 HENMT Head: normal to inspection Eyes Sclera: sclerae normal Resp Effort & Inspection: normal respiratory effort GI Inspection: normal to inspection Assessment and Plan Assessment and Plan (1) Ileum ulcer: Status: Chronic Plan: She had IBD diagnostic testing. She only had one marker for Crohn's disease and she is not having any intestinal or extraintestinal signs of Crohn's disease at this time. 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 I have examined the patient and the H&P has been reviewed. There are no clinical changes since date of exam.
--- NOTE | 2023-11-05 09:16 | OP.COLON_ITS ---
Patient Name: Zuleika Driver Procedure Date: 11/05/2023 8:54 AM Date of : 1970 Age: 53 Procedure: Colonoscopy Indications: High risk colon cancer surveillance: Personal history of colon cancer Providers: Aric Donato DO Medicines: Monitored Anesthesia Care Patient Profile: This is a 53 year old female. Refer to note in patient chart for documentation of history and physical. Last Colonoscopy: 1 year ago. Complications: No immediate complications. Procedure: Pre-Anesthesia Assessment: - Prior to the procedure, a History and Physical was performed, and patient medications and allergies were reviewed. The patient is competent. The risks and benefits of the procedure and the sedation options and risks were discussed with the patient. All questions were answered and informed consent was obtained. Patient identification and proposed procedure were verified by the physician in the pre-procedure area. Mental Status Examination: alert and oriented. Airway Examination: normal oropharyngeal airway and neck mobility. Respiratory Examination: clear to auscultation. CV Examination: normal. Prophylactic Antibiotics: The patient does not require prophylactic antibiotics. Prior Anticoagulants: The patient has taken no anticoagulant or antiplatelet agents. ASA Grade Assessment: II - A patient with mild systemic disease. After reviewing the risks and benefits, the patient was deemed in satisfactory condition to undergo the procedure. The anesthesia plan was to use monitored anesthesia care (MAC). Immediately prior to administration of medications, the patient was re-assessed for adequacy to receive sedatives. The heart rate, respiratory rate, oxygen saturations, blood pressure, adequacy of pulmonary ventilation, and response to care were monitored throughout the procedure. The physical status of the patient was re-assessed after the procedure. After I obtained informed consent, the scope was passed under direct vision. Throughout the procedure, the patient's blood pressure, pulse, and oxygen saturations were monitored continuously. The pediatric colonoscope was introduced through the anus and advanced to the cecum, identified by appendiceal orifice and ileocecal valve. The colonoscopy was performed without difficulty. The patient tolerated the procedure well. The quality of the bowel preparation was adequate. The ileocecal valve, appendiceal orifice, and rectum were photographed. Scope In: 8:59:11 AM Scope Withdrawal Time 0 hours 6 minutes 38 seconds Scope Out: 9:12:57 AM Total Procedure Duration Time 0 hours 13 minutes 46 seconds Findings: The perianal and digital rectal examinations were normal. There was evidence of a prior end-to-end colo-colonic anastomosis in the recto-sigmoid colon. This was patent. One biopsy was obtained in the sigmoid colon with cold forceps for histology. Verification of patient identification for the specimen was done. Estimated blood loss was minimal. The exam was otherwise without abnormality on direct and retroflexion views. Impression: - Patent end-to-end colo-colonic anastomosis. - The examination was otherwise normal on direct and retroflexion views. - One biopsy was obtained in the sigmoid colon. Recommendation: - Discharge patient to home. - Resume previous diet. - Continue present medications. - Await pathology results. - Repeat colonoscopy in 2 years for surveillance. Procedure Code(s): --- Professional --- 77362, Colonoscopy, flexible; with biopsy, single or multiple CPT copyright 2021 [employer]. All rights reserved. The codes documented in this report are preliminary and upon pick up driver review may be revised to meet current compliance requirements. Aric Donato DO 11/05/2023 9:16:29 AM This report has been signed electronically. Number of Addenda: 0 Note Initiated On: 11/05/2023 8:54 AM
--- NOTE | 2023-11-05 09:23 | PCM.POST.ANE ---
Anesthesia: Postop Eval I Current Vital Signs Temperature: 97.3 F Pulse Rate: 70 Blood Pressure: 110/78 Respiratory Rate: 16 Pulse Ox: 100 Oxygen Delivery Method: Room Air Assessment Airway patent: Yes Spontaneous unlabored respirations: Yes Mental status: Asleep nausea: No Vomiting: No Anesthesia Complication: No Fluid Hydration Crystalloid volume administer (ml): 500 Total IV fluid infused: 500 Progress Note Anesthesia document: Postop Eval 1 completed: Yes
--- NOTE | 2023-11-05 10:07 | PCM.POSTANE2 ---
Anesthesia Postop Eval I Sum Postop Eval Completion status Anesthesia document: Postop Eval 1 completed: Yes Anesthesia Postop Eval I Summary Anesthesia Postop Eval I Summary: Anesthesia Postop Eval I: Assessment Summary Airway patent Yes 11/05/23 09:24 [email or web address] Spontaneous unlabored Yes 11/05/23 09:24 [email or web address] respirations Mental status Asleep 11/05/23 09:24 [email or web address] nausea No 11/05/23 09:24 [email or web address] Vomiting No 11/05/23 09:24 [email or web address] Anesthesia Postop Eval I: Fluid Summary Crystalloid volume administer 500 11/05/23 09:24 [email or web address] (ml) Colloids volume administered ( ml) Blood Product volume administered (ml) Total IV fluid infused 500 11/05/23 09:24 [email or web address] Anesthesia Postop Eval I: Summary Notes Anesthesia Complication No 11/05/23 09:24 [email or web address] Anesthesia Complication Comment: Post-operative progress note Anesthesia: Postop Eval II Evaluation Mental status: Awake Pain Level: 0 nausea: No Vomiting: No
== END 2023-11-05 10:12 | disposition home or self-care (01) ==
LOC: EN 07:28 → AC 07:29
PROVIDERS: PCP Student in an Organized Health Care Education/Training Program; Referring Provider Student in an Organized Health Care Education/Training Program; Visit Provider Internal Medicine Gastroenterology
PROC: 0DJD8ZZ Inspection of Lower Intestinal Tract, Via Natural or Artificial Opening Endoscopic (ICD-10-PCS; CPT 45378; principal; 2023-11-05 08:25)
DX: Z12.11 Encounter for screening for malignant neoplasm of colon (principal); Z85.038 Personal history of other malignant neoplasm of large intestine; K63.3 Ulcer of intestine
CPT/HCPCS: 45380; 88305; J7120; J2405